=== PATIENT | male | born 1995 | race Caucasian/White ===

== ENCOUNTER 2024-09-12 15:46 | Outpatient (CLI) | payer BC, SELFPAY ==
--- NOTE | ~2024-09-12 | CT_ITS ---
EXAMINATION: CT lumbar spine w con DATE: 09/12/2024 16:26 INDICATION: Pilonidal cyst without abscess. TECHNIQUE: Computed tomography (CT) of the lumbar spine was performed with 100 mL Omnipaque 350 intra venous contrast. Automated exposure control and iterative reconstruction technique were employed. The dose-length product was 620.88 mGy-cm. COMPARISON: Ultrasound 08/05/2024 FINDINGS: There is 4 degrees levocurvature of lumbar spine. Vertebral body heights are normal. Interv ertebral disc heights are normal. Posterior to S4, there is a 9 mm thick-walled subcutaneous cyst. Th e following disc levels are specifically discussed: L1-L2: The disc does not extend beyond the endplate margin. There is mild bilateral facet joint osteo arthritis. There is no neural foraminal stenosis. There is no central canal stenosis. L2-L3: The disc does not extend beyond the endplate margin. There is mild bilateral facet joint osteo arthritis. There is no neural foraminal stenosis. There is no central canal stenosis. L3-L4: The disc is bulging. There is mild bilateral facet joint osteoarthritis. There is mild bilater al neural foraminal stenosis. There is mild central canal stenosis. L4-L5: The disc is bulging. There is mild bilateral facet joint osteoarthritis. There is mild bilater al neural foraminal stenosis. There is mild central canal stenosis. L5-S1: The disc is bulging. There is mild bilateral facet joint osteoarthritis. There is mild bilater al neural foraminal stenosis. There is mild central canal stenosis. IMPRESSION: 1. Mild lumbar spondylosis. 2. 9 mm thick-walled subcutaneous cyst posterior to S4, likely a pilonidal cyst. Reviewed, dictated and finalized at location A. SSION LIAISON IMPRESSION: 1. Mild lumbar spondylosis. 2. 9 mm thick-walled subcutaneous cyst posterior to S4, likely a pilonidal cyst .
--- OUTSIDE RECORDS SUMMARY | 2024-09-16 02:04 | XMS_ITS | Encounter Summary ---
Author Organization [facility] Address [address] [place] [address] Care Team Providers Care Director Of Marketing Operations Name Role Phone Hema Lauren MD Primary Care Provider + [phone] Reason for Visit * Auth/Cert (Routine) Specialty Diagnoses / Procedures Referred By Venita t Referred To Contact Diagnoses Acute lateral meniscus tear of right knee, initial encounter Acute lateral meniscus tear of right knee, initial encounter [S83.281A] Procedures MO ARTHRS KNE SURG W/MENISCECTOMY MED/LAT W/SHVG MO ARTHROSCOPY KNEE W/MENISCUS RPR MEDIAL/LATERAL RIGHT KNEE ARTHROSCOPIC PARTIAL LATERAL MENISCECTOMY VERSUS REPAIR RIGHT Referral ID Status Reason Start Date Expiration Date Visits Re quested Visits Authorized [id number] 1 1 Encounter Details Date Type Department Care Team (Latest Contact Info) Description 11/02/2023 1:23 PM TUBER MACHINE CUTTER - 11/02/2023 6:08 PM TUBER MACHINE CUTTER Hospital Encounter [facility] [address] [place] [id number] Ishaan Lee IV, MD [address] [place] [phone] Bucket-handle tear of lateral meniscus of right knee as current injury, subsequent encounter (Primary Dx) Discharge Disposition: Discharge to home or self care Social History Tobacco Use Types Packs/Day Years Used Date Smoking Tobacco: Never Smokeless Tobacco: Never AUDIT-C Answer Date Recorded Q1: How often do you have a drink containing alc ohol? 2-4 times a month 10/18/2023 Q2: How many drinks containi ng alcohol do you have on a typical day when you are drinking? 5 or 6 10/18/2023 Q3: How often do you have si x or more drinks on one occasion? Monthly 10/18/2023 Personal Safety Answer Date Recorded Have you ever been in or are you currently in a harmful physical or emotional relationship or is someone making you feel afraid or unsafe? Denies 11/02/2023 Sex and Gender Information Value Date Recorded Sex Assigned at Not on file Legal Sex Male 11:56 PM CDT Gender Identity Not on file Sexual Orientation Not on file documented as of this encounter Last Filed Vital Signs Vital Sign Reading Time Taken Comments Blood Pressure 111/66 11/02/2023 5:45 PM TUBER MACHINE CUTTER Pulse 63 11/02/2023 5:55 PM TUBER MACHINE CUTTER Temperature 36.5 ??C (97.7 ??F) 11/02/2023 5:55 PM CS T Respiratory Rate 15 11/02/2023 5:55 PM TUBER MACHINE CUTTER Oxygen Saturation 98% 11/02/2023 5:55 PM TUBER MACHINE CUTTER Inhaled Oxygen Concentration - - Weight 90 kg (198 lb 6.4 oz) 11/02/2023 1:40 PM TUBER MACHINE CUTTER Height 182.9 cm (6') 11/02/2023 1:40 PM TUBER MACHINE CUTTER Body Mass Index 26.91 11/02/2023 1:40 PM TUBER MACHINE CUTTER documented in this encounter Medications at Time of Discharge HYDROcodone-aceta minophen (NORCO) 5-325 mg per tabletIndications :Pain Take 1-2 tablets by mouth every 6 (six) hours as needed for pain 12 tablet 11/02/2023 ibuprofen (ADVIL,MOTRIN) 200 mg tab/cap Take 2 tablet/capsule (400 mg total) by mouth every 6 (six) hours as needed for pain meloxicam (MOBIC) 15 mg tablet Take 1 tablet (15 mg total) by mouth daily for 10 days 10 tablet 11/02/2023 documented as of this encounter Discharge Disposition Disposition Code Departure Means Destination Comment s Discharge to home or self care documented in this encounter H&P Notes * Payton Topete NP - 11/02/2023 1:24 PM CST Outpatient Pre-Procedure History and Physical Subjective Patient is a 28 y.o. male with chief complaint of right knee pain. Indication For Procedure: Pre-op Diagnosis * Acute lateral meniscus tear of right knee, initial encounter [S80.046T] Planned Procedure RIGHT KNEE ARTHROSCOPIC PARTIAL LATERAL MENISCECTOMY VERSUS REPAIR (R), RIGHT (R) HPI: Patient is a 28 year old male with a right knee lateral meniscus tear who presents today for right knee arthroscopic partial lateral meniscectomy versus repair. History reviewed. No pertinent past medical history. Past Surgical History: Procedure Laterality Date UMBILICAL HERNIA REPAIR 2017 Medications Prior to Admission Medication Sig Dispense Refill Last Dose ibuprofen (ADVIL,MOTRIN) 200 mg tab/cap Take 2 tablet/capsule (400 mg total) by mouth every 6 (six)hours as needed for pain Past Week HYDROcodone-acetaminophen (NORCO) 5-325 mg per tablet Take 1-2 tablets by mouth every 6 (six) hoursas needed for pain 12 tablet 0 meloxicam (MOBIC) 15 mg tablet Take 1 tablet (15 mg total) by mouth daily for 10 days 10 tablet 0 Allergies Allergen Reactions Pollen Extracts Sneezing Social History Tobacco Use Smoking status: Never Smokeless tobacco: Never Substance and Sexual Activity Drug use: Not Currently Sexual activity: Defer Alcohol Use: Alcohol Misuse (10/18/2023) AUDIT-C Frequency of Alcohol Consumption: 2-4 times a month Average Number of Drinks: 5 or 6 Frequency of Binge Drinking: Monthly Social History Substance and Sexual Activity Drug Use Not Currently Vitals: 10/18/23 1600 Weight: 88.5 kg (195 lb) Height: 182.9 cm (6') Review of Systems: Review of systems per HPI and otherwise all other systems are negative Physical exam: Lungs: clear to auscultation bilaterally Heart: regular rate and rhythm, S1, S2 normal, no murmur, click, rub or gallop Neurologic: Alert and oriented x4, grossly intact Payton Topete NP Cosigned by Ishaan Lee IV, MD at 11/02/2023 2:45 PM TUBER MACHINE CUTTER R MACHINE CUTTER R MACHINE CUTTER documented in this encounter Miscellaneous Notes * Perioperative Nursing Note - Morenita De La Garza RN - 11/02/2023 6:08 PM TUBER MACHINE CUTTER Patient discharged to home. Instructions given to patient and parents, all verbalize understanding,all questions answered. Patient is NWB for 2 days, and then WBAT with tscope brace locked in extension starting on POD 3. Patient has crutches. Patient given a disposable ice pack to take home. Patient escorted to car in wheelchair for discharge. R MACHINE CUTTER * Perioperative Nursing Note - Morenita De La Garza RN - 11/02/2023 4:34 PM TUBER MACHINE CUTTER Pt in bed in lowest position locked with both side rails up, nonslip socks applied, curtain open and patient near nurses station. Pt will not be left behind curtain alone. Pt assisted in all care in recovery. Leland score based on pre-op condition. R MACHINE CUTTER * Brief Op Note - Emeterio Ortega DO - 11/02/2023 4:24 PM CST Operative Progress Note Surgical Team: Surgeon(s) and Role: * Ishaan Lee IV, MD - Primary * Emeterio Ortega DO - Fellow Anesthesiologist: Rosa Rice MD INSPECTOR TIMERS: Adry Cade CRNA Explosive Ordnance Disposal Technician: Debbie Francisco RN Scrub: Marie Lipscomb RN DATE OF SURGERY : 11/02/2023 Preoperative Diagnosis: Pre-op Diagnosis * Acute lateral meniscus tear of right knee, initial encounter [S83.281A] Postoperative Diagnosis: Post-op Diagnosis * Acute lateral meniscus tear of right knee, initial encounter [S83.281A] Procedure(s): Procedure(s) (LRB): RIGHT KNEE ARTHROSCOPIC LATERAL MENISCUS REPAIR (Right) RIGHT (Right) Operative Findings: PF compartment cartilage intact ACL intact PCL intact Medial compartment intact Lateral meniscus vertical tear Lateral compartment cartilage intact Estimated Blood Loss: 50 mL Intraoperative Fluids: 1000 mls Specimens: No specimen collected in procedure Implants: Implant Name Type Inv. Item Serial No. Child Support Investigator Lot No. LRB No. Used Action [employer] Meniscal Repair Curved 2 0 Fiberwire Fiberstitch AR-4570 - [id number] [employer] Meniscal Repair Curved 2 0 Fiberwire Fiberstitch AR-4570 [employer] [id number] Right 1 Implanted [employer] Meniscal Repair Curved 2 0 Fiberwire Fiberstitch AR-4570 - [id number] [employer] Meniscal Repair Curved 2 0 Fiberwire Fiberstitch AR-4570 [employer] [id number] Right 1 Implanted [employer] Independence Meniscal Repair Curved 2 0 Fiberwire Fiberstitch AR-4570 - [id number] [employer] Independence Meniscal Repair Curved 2 0 Fiberwire Fiberstitch AR-4570 [employer] [id number] Right 1 Implanted [employer] Independence Meniscal Repair Curved 2 0 Fiberwire Fiberstitch AR-4570 - [id number] [employer] Independence Meniscal Repair Curved 2 0 Fiberwire Fiberstitch AR-4570 [employer] [id number] Right 1 Implanted Blood/Blood Products Transfused: 0 mls Complications: None Condition on Discharge from the operating room was stable Emeterio Ortega DO Date: 11/02/2023 Time: 4:28 PM TEACHING ATTESTATION : I was present and directly participated in the entire procedure (including opening and closing). Cosigned by Ishaan Lee IV, MD at 11/02/2023 5:25 PM TUBER MACHINE CUTTER R MACHINE CUTTER R MACHINE CUTTER * Perioperative Nursing Note - Morenita De La Garza RN - 11/02/2023 1:48 PM TUBER MACHINE CUTTER Patient's parents Reza and Jo are here with patient and will care for him for 24 hours after surgery. Patient has crutches. R MACHINE CUTTER * Op Note - Ishaan Lee IV, MD - 11/02/2023 12:00 AM CST PREOPERATIVE DIAGNOSIS Right knee displaced bucket-handle lateral meniscus tear. POSTOP DIAGNOSIS Right knee displaced bucket-handle lateral meniscus tear. PROCEDURE Right knee arthroscopic lateral meniscus repair. SURGEON Dr. Ishaan Lee. GEOCHEMICAL MANAGER Dr. Emeterio Ortega. ANESTHESIA General. IV FLUIDS 1000 mL. EBL 50 mL. IV ANTIBIOTICS 2 g Ancef. IMPLANTS Four FiberStitch meniscal repair implants. DRAINS None. COMPLICATIONS None. DISPOSITION To the PACU in stable condition. INTRAOPERATIVE FINDINGS 0-135 degrees of flexion symmetric with the contralateral side. 1A Felisa. No varus or valgus instability at 0 and 30 degrees of flexion. Arthroscopic examination revealed no pathology in the suprapatellar pouch. Intact cartilage on patella and trochlea. No pathology or loose bodies in medial or lateral gutter. The medial compartment showed intact articular and meniscal cartilage. ACL was intactin the notch. The lateral compartment showed a bucket-handle tear of the posterior horn of the lateral meniscus at the red-red zone unstable into the joint. Intact cartilage on the femur and tibia. PROCEDURE INDICATIONS As outlined in my clinic note, patient is a 28-year-old gentleman with long- standing mechanical symptoms due to a displaced bucket-handle lateral meniscus tear. As outlined my clinic note, he understands indication for surgery, the risks and benefits, and wishes to proceed. I indicated him intraoperatively for a lateral meniscus repair because if I resected his entire posterior horn of lateral meniscus, he would have a significant risk for pain, swelling and rapidly progressive degenerative changes. DESCRIPTION OF PROCEDURE The surgical site was signed in the preoperative holding area. The patient was then brought to the operating room and placed supine on the operating table. Preoperative antibiotics were given if indicated and adequate anesthesia was achieved. A nonsterile tourniquet was placed on the patient's thigh. Examination under anesthesia was performed and the findings were as previously indicated. The patient was then prepped and draped in the standard sterile surgical fashion. A surgical timeout was held to confirm the appropriate surgical site had been identified. Standard knee arthroscopy portals were made in the standard fashion. Inspection of the joint commenced and the findings were as previously indicated. After confirming it was appropriately to treat with repair, I used 3 FiberStitch meniscal repair implants. I placed 2 vertical mattress sutures at the more medial aspect of the posterior horn workingthrough the anterolateral portal. I then placed a slightly oblique mattress fashion at the more lateral aspect of the posterior horn working through the anteromedial portal. Finally I placed an undersurface horizontal stitch through the anterolateral portal. Once those 4 had been placed, the tear was now stable along its entire extent to the probe and to flexion and extension of the knee. I then used a microfracture awl to make appropriately spaced microfractures in the nonweightbearing lateralnotch for bone marrow stimulation. There was nice egress of fat and blood into the joint appropriately. The case was then completed in the standard fashion. The fluid was compressed out of the joint and the arthroscopic equipment was removed. The portals were closed with sutures in a watertight fashion. Wounds were cleaned and dried and a sterile surgical dressing was applied. The patient was placed in a hinged brace locked in extension at the end of the case. The patient tolerated the procedure well and was transferred to the PACU in stable condition. The sponge, needle and instrument count were correct at the end of the case. I was present for and performed the entire case with the help of the assistants in the room. Job ID/Internal Job ID: [id number] R MACHINE CUTTER * Pre-Procedure Instructions - Jesi Bruno RN - 11/01/2023 3:00 PM TUBER MACHINE CUTTER We are pleased that you and your doctor have chosen [facility] for your surgery. We hope the following information will help make your visit a pleasant one. The name of the building is [facility] in [place]. Directions to facility (address is [address] [place] [address] road, [address] [facility] exit. [place] [address] When you enter the building, look directly to your left, you will see 2 glass double doors. These double doors say [address]. Go through those double doors and check in with the green pipefitter. Patient has own crutches and knows how to use them. Bring pillows, leave in car. Patient has ice/gel pack for home. Wear loose-fitting clothes. Something with an elastic waist on the bottom, such as gym shorts or sweat pants depending on the weather. T-shirt on top or a shirt with a loose sleeve unless you are having shoulder surgery then wear a loose- fitting button-down shirt or a shirt that zips up the front. Pt instructed by CPAP not to eat anything after Midnight. CPAP instructed pt.-->You may have clear liquids on the day of surgery until two hours before your arrival to the Orthopedic center, clear liquids until 1130. Acceptable clear liquids include water, clear sports drinks, unsweetened tea, black coffee or clear soda. Do NOT drink Milk, creamer or Alcohol. You MUST STOP drinking two hours before you arrive to the Orthopedic center. No gum, no mints , no candy, no cough drops, no CBD oil, no marijuana, no Chewing tobacco, or vaping. No ice or water. You may brush your teeth, just make sure you spit it all out. Instructed to patient to refer to [facility] surgery guide page 6 for any questions regarding eating and drinking day of surgery. For medications that the Nurse Practitioner instructed you to take on the morning of surgery, take the medications with a few sips of water. Pt's. TRIP LEE [phone] will be with patient and care for patient for the first 24 hours post-op. Pt. Instructed to arrive at 1330 for 1530 procedure. Procedure is scheduled for 3/4 hour(s). Pt. Denies any of the following symptoms: Nausea/vomiting/diarrhea, loss of taste or smell, rash orsores, body/muscle/joint aches, cough, sore throat, fever/chills, severe headache or Shortness of breath. Pt. is asymptomatic and denies any exposure to Covid or any Covid symptoms. Explained to patient, if you develop any symptoms of fever, chills, headache, cough, sore throat, body aches or is exposed to anyone that has been diagnosed, tested or quarantined for the COVID-19 you will not be allowed to enter the building or to have your surgery per anesthesia's guidelines. Explained to patient to please call the morning of surgery, any time after 5:30 a.m. if you or your caregiver develops any of these symptoms or is exposed to anyone that has been diagnosed, tested or quarantined for COVID-19. Pt. Reports understanding. Once your physician has completed your surgery, he will call your caregiver to notify them your surgery is complete, and you are heading to the Recovery room. Your caregiver will not be called back to be with you until you are awake and ready for discharge. The nurse who is caring for you will callyour caregiver to come back to be with you for discharge instructions. Explained to patient that the self-serve cafe is across the cerda from the surgery center. Explainedto patient if their caregiver would like anything to eat or drink, they may bring their own or purchase it from the refreshment area. R MACHINE CUTTER * Pre-Procedure Instructions - Deepika Benitez NP - 10/26/2023 1:24 PM TUBER MACHINE CUTTER [facility] for Preoperative Assessment [facility] Planning CPAP Clinic Location: [facility] The night before your surgery: * Do not eat anything after midnight the night before your procedure. and * Do not smoke or use tobacco products after midnight the night before surgery. It is best to stop smoking now to improve your health. The morning of your surgery: * You may have clear liquids on your surgery day. You must stop drinking two hours before you arrive to the surgery facility. Acceptable clear liquids include water, clear sports drinks, black coffee, or clear soda. DO NOT drink any milk, creamer, or alcohol. * Your surgeon's office may have provided additional instructions or restrictions. Please follow those instructions. * You may brush your teeth and rinse your mouth out. * Do not glue your dentures. * Do not wear jewelry, body piercings, makeup, hairpins, false eyelashes or contact lenses to the hospital. * Leave any valuables at home or with your family. * If you have an implantable device with a remote, bring the remote with you on the day of surgery. * If you use home oxygen, bring your portable oxygen tank with you on the day of surgery * If you are going to be admitted after surgery at [facility], COVID testing may be performed on the day of surgery, even if you are up to date on your COVID-19 vaccine. * If having surgery at [facility], you may want to bring a credit card if you want to use our Mobile Pharmacy for your discharge medications. Mobile pharmacy is not available at [facility], the Orthopedic Center, or the [facility]. Outpatient Surgery: * You must have a responsible adult drive you home and stay with you for 24 hours after your surgery * You cannot be alone at home or in a hotel * Please call your surgeon's office if you do not have someone to drive you home and/or stay with you after surgery * Please bring any items you may need to spend the night in the hospital. Sometimes patients need to be cared for in the hospital overnight. Instructions For Your Medications: Pre-Surgery Instructions: Medication Instructions ibuprofen (ADVIL,MOTRIN) 200 mg tab/cap Stop taking 5 days prior to surgery General Instructions For Medications: * Stop all of these medications 5 days prior to your surgery: excedrin, motrin, advil, ibuprofen, aleve, naproxen, meloxicam, celebrex, celecoxib. For medications that you are instructed to take on the morning of surgery, take the medications with a few sips of water. Stop all of these medications 7-14 days prior to your surgery: Vitamin E, Herbal medicines, Diet Pills If you have pain, you may take tylenol (acetaminophen). Do not take more than 6 tablets or 3000 mg (3 g) within a 24 period. Call your surgeon and the CPAP clinic if any of the following happens before surgery: Any changes in your health You have a fever You have any signs of an infection (chest, urinary tract or tooth) You have been to the Emergency Room or were in the hospital You have started taking any new medications You have questions about a bowel prep or special diet before surgery You have symptoms of COVID-19 such as a new or worsening cough, shortness of breath, fever, body aches, loss of taste or smell, diarrhea or vomiting, or sore throat. You have a household contact with COVID-19. You test positive for COVID-19. R MACHINE CUTTER * Perioperative Nursing Note - Aubrey Henley RN - 10/18/2023 4:08 PM TUBER MACHINE CUTTER Center for Preoperative Assessment and Planning Perioperative Nursing Note Telephone Preoperative Evaluation ([facility]) - TELEPHONE ONLY, NO PHYSICAL EXAM Date: 10/18/23 This assessment was completed with the patient. Vitals: 10/18/23 1600 Weight: 88.5 kg (195 lb) Height: 182.9 cm (6') CHEST CIRCUMFERENCE: Social History Tobacco Use Smoking Status Never Smokeless Tobacco Never Substance and Sexual Activity Drug Use Never Alcohol Use Q1: How often do you have a drink containing alcohol?: 2-4 times a month Q2: How many drinks containing alcohol do you have on a typical day when you are drinking?: 5 or 6 Q3: How often do you have six or more drinks on one occasion?: Monthly Outpatient Medications Marked as Taking for the 11/02/23 encounter (Hospital Encounter) Medication Sig Dispense Refill ibuprofen (ADVIL,MOTRIN) 200 mg tab/cap Take 2 tablet/capsule (400 mg total) by mouth every 6 (six)hours as needed for pain Implants No active implants to display in this view. SKIN Piercings Remaining: No Wound (LDAs) Type of Wound (LDA): (none) SCREENINGS Carmen index score: 100 NUTRITION PATIENT CARE PLANNING Advance Directives (For Healthcare) Have you reviewed your Advance Directive and is it valid for this stay?: Not applicable Advance Directive: Patient does not have advance directive, Patient would like information, Information provided Information Provided on Healthcare Directives: Yes Communication/Automation Sales Manager Needs Communication Needs: None Does caregiver's language differ from patient's?: No Assistive Devices/DME: None Discharge Planning Type of Residence: Private residence Living Arrangements: Spouse/significant other Support Systems: Spouse/significant other, Parent Assistance Needed: Father to provide discharge transportation Patient expects to be discharged to:: Private residence HORTICULTURAL FARM MANAGER NO ADDITIONAL COMMENTS/ FOLLOW UP R MACHINE CUTTER * Pre-Procedure Instructions - Aubrey Henley RN - 10/18/2023 4:08 PM TUBER MACHINE CUTTER [facility] FOR PREOPERATIVE ASSESSMENT AND PLANNING ([facility]) PRE-SURGICAL NURSING INSTRUCTIONS Telephone Assessment General Information Discussed with Patient: Surgery location provided to patient. Arrival time and surgical time will be provided to the patient by their surgeon. You should wear clothing that is clean, loose, comfortable and easy to get in and out of on the dayof surgery. You should remove nail coverings, artificial nails and nail vietnamese prior to the day of surgery. You should leave your valuables and any jewelry at home. No metal or piercings are allowed in the operating room. You should bring your insurance card, a photo ID (example: Wrecking Crane Engine Operator's License) and a method of payment for any insurance copay, deductible or copay for discharge medications. You should bring a complete, up-to-date, list of all your medications on the day of surgery, including any over the counter medications or supplements you may take. Please note on your medication list, the last date & time you took each medication. The healthcare team, on the day of surgery, will ask for this information. You should bring your Advanced Directive and/or Living Will with you on the day of surgery if you have not verified a copy is already in your Epic Chart. If you are having surgery at [facility], please arrive on the day of surgery with the name and phone number of your local 24 hour pharmacy. Due to evening discharges, your routine pharmacy may be closed. In order to obtain your prescriptions that evening, your surgeon may need to send prescriptions to this pharmacy or have you take prescriptions to this pharmacy when you are discharged. Without this information, you may not be able to obtain your prescriptions that evening. A Guide for Patients Having Surgery: Your Pathway to Excellent Care OUR GOAL IS TO PROVIDE YOU WITH EXCELLENT CARE Use this guide to learn about what you can do before, during and after surgery to help your recovery. You are the most important person on your health care team. By becoming informed and involved, you can contribute to the success of your surgery. If your surgeon's directions are different than those in this guide, talk with your nurse or surgeon to confirm the information. It is important that you understand how to take care of yourself at home after surgery. Be sure to bring this guide with you on the day of surgery and take it home with you after surgery. Write down questions for your nurse or surgeon on the last page of this booklet. Important pages to be reviewed BEFORE surgery: Page 1: QR codes for Surgery Center maps Page 3: Types of Anesthesia Page 5: Tips for the day & night before surgery Page 6: When to stop eating BEFORE surgery and examples of clear liquids Page 7-10: Preventing Infection: Chlorhexidine Gluconate (CHG) Bathing Instructions You may access A Guide for Patients Having Surgery: Your Pathway to Excellent Care by the followinglink: [email or web address] How To Prepare Your Skin For Surgery Below is the Pre-Surgical Bathing Protocol you should follow for your surgery. If your surgeon provides you different bathing instructions, please follow your surgeon's orders. 2 Day CHG Bathing Protocol (no nasal ointment) PREVENTING INFECTION (DECOLONIZATION): Decolonization is the use of a topical antiseptic soap and sometimes a nasal ointment to remove bacteria (germs) from the skin's surface. Antiseptic soap: Chlorhexidine gluconate or CHG (brand name: Hibiclens??) Before surgery, your entire body must be thoroughly cleaned. CHG helps to reduce the bacteria on your skin. You may be given one or more bottles of CHG or you may be asked to obtain from your preferred pharmacy. Be sure to ask your pharmacist if you need help finding this product. Nasal ointment: Mupirocin (brand name: Bactroban) Your surgeon may also prescribe a topical ointment that is rubbed inside each of the nostrils to reduce the bacteria in your nose. Mupirocin ointment requires a prescription. If needed, it will be prescribed by your surgeon and obtained from your preferred pharmacy. SHOWERING WITH ANTISEPTIC SOAP (CHG) What You Need For Each Shower 60 mL (?? cup) of CHG 2 clean washcloths CHG Bathing Instructions First, shampoo and rinse your hair with your own shampoo (no conditioners). Do this so the antiseptic soap isn't washed off by your shampoo. Wash face with warm water. Turn off shower and stand away from the water. Use 2 clean washcloths to apply the antiseptic soap to all areas as described below: Pour 30 mL (1/8 cup) of CHG on washcloth #1: Using washcloth- start at jawline and firmly massage the soap into the skin in a circular motion to clean neck, shoulders, chest, back, both armpits, arms, hands and abdomen. Finish with legs and feet. Pour 30 mL (1/8 cup) of CHG on washcloth #2: Using washcloth- firmly massage the soap into the skinin a circular motion to clean groin area, perineum and buttocks. (Do not use CHG on genital area.) Alvarez Points: The CHG antiseptic soap will not bubble or lather very much. If you get soap in your eyes, ears or mouth, rinse well with cool water. When finished, leave the soap on your skin for 2 minutes before rinsing. Dry off with a clean fresh towel. Wear clean clothes or pajamas to sleep in. After showering DO NOT put on deodorant, hair products or conditioners, lotions or creams, powders,Vaseline or any non-essential products. If you cannot reach the surgical site, such as the back, please have someone help you. Shaving: You may shave your face, legs and underarms during your evening shower before you apply the CHG antiseptic soap. Be careful not to cut or modesta your skin. Avoid shaving on the day of surgery. Deodorant: Patients following the 5-Day CHG protocol may apply deodorant on the days leading up to surgery, being sure, however, to avoid use on the evening before and day of surgery. All other products should be avoided for the full 5 days. 2-Day CHG Bathing Protocol The Evening Before Surgery: Take a shower with Antiseptic soap (CHG). Follow the steps for ???Showering with Antiseptic Soap (CHG)?? above. Change all linens on your bed so you are sleeping in clean fresh sheets and pillowcases. Remove nail coverings, artificial nails and nail vietnamese. The Morning of Surgery: Take a shower with Antiseptic soap (CHG). Follow the steps for ???Showering with Antiseptic Soap (CHG)?? above. Put clean clothes on after you shower. Travel/Exposure Screening: Travel Screening Have you traveled outside the [place] in the last 6 months?: No Exposure Screening Have you been exposed to anyone who is sick in the last 30 days?: No Have you been exposed to or tested positive for COVID-19 within the last 10 days?: No Infectious Disease Screening Are you having any of the following:: None As of 07/25/2022 any COVID TESTING required for surgery will be set up by your surgeon's office. Please reach out to your surgeon's office if you develop any COVID symptoms, test positive for COVID or are exposed to a COVID positive person. If you have questions, please call the [facility] Staff at [phone], Sunday-Sunday 8am-4:30pm. All patients should read the below section: COVID 19 Updates & Visitor Policy: Please access [email or web address] for the most updated information. Information on [facility]: Please view [email or web address] (Patient & Visitor Information) for additional details regarding Advanced Directive forms, AWARE, directions, parking information, lodging, Internet access, dining and more. Information on [facility] or [facility] ([facility]): Please view [email or web address] (Patient and Visitor Information) for parking/directions and more. For MyChart information, to activate account or password recovery, please go to [email or web address] or call [phone] (toll-free: [phone]), Sun- Sunday 8am-5pm. Information for Suicide Prevention: National Suicide Prevention Lifeline (5-767- 925-BDOD (4154)) or call or text Opternative. Chat resources: [employer]. Surgery Times: For patients having [facility] @ [facility], if your surgeon's office has not notified you of your surgery time by NOON THE BUSINESS DAY BEFORE your surgery, please call the surgery center [phone]. [facility] ([facility]) does not provide arrival times for the day of surgery or provide the duration of surgery. This information is provided by your surgeon'soffice or by the center where you are having surgery. We appreciate your understanding. R MACHINE CUTTER documented in this encounter Plan of Treatment Not on file documented as of this encounter Procedures Procedure Name Priority Date/Time Associated Diagnosis Comments ARTHROSCOPY KNEE MENISCAL REPAIR 11/02/2023 3:25 PM TUBER MACHINE CUTTER Acute lateral meniscus tear of right knee, initial encounter ARTHROSCOPY KNEE MENISCAL DEBRIDEMENT 11/02/2023 3:25 PM TUBER MACHINE CUTTER Acute lateral meniscus tear of right knee, initial encounter documented in this encounter Visit Diagnoses Diagnosis Acute lateral meniscus tear of right knee- Primary Bucket-handle tear of lateral meniscus of right knee as current injury, subsequent encounter documented in this encounter Admitting Diagnoses Diagnosis Acute lateral meniscus tear of right knee documented in this encounter Administered Medications Inactive Administered Medications - up to 3 most recent administrations Medication Order MAR Action Action Date Dose Rate Site HYDROcodone-acetaminophen (NORCO) 5-325 mg per tablet 1 tablet 1 tablet, oral, Every 30 min PRN, 2nd line for pain, Starting on Sun11/02/23 at 1639, For 2 doses, Phase I, Indications: PainIndications:Pain Given 11/02/2023 5:24 PM TUBER MACHINE CUTTER 2 tablets Lactated Ringer's (LR) infusion 30 mL/hr, intravenous, Continuous, Starting on Sun11/02/23 at 1400, Pre-Op, Use a 500 ml bag for End Stage Renal Disease Patients New Bag 11/02/2023 4:26 PM TUBER MACHINE CUTTER Rate/Dose Verify 11/02/2023 3:22 PM TUBER MACHINE CUTTER 30 mL/h r New Bag 11/02/2023 1:51 PM TUBER MACHINE CUTTER 30 mL/hr 30 mL/hr lidocaine PF (XYLOCAINE) 10 mg/mL (1 %) preservative free injection 2-10 mg 2-10 mg (0.2-1 mL), subcutaneous, Once as needed, pain with IV placement, Starting on Sun11/02/23 at 1325, For 1 dose, Pre-Op, Administer volume needed to infiltrate IV site. Given 11/02/2023 1:51 PM TUBER MACHINE CUTTER 2 mg Right Forearm documented in this encounter Discontinued Medications Medication Sig Discontinue Reason Start Date End Da te acetaminophen (TYLENOL) 325 mg tablet Take by mouth Therapy completed 10/18/2023 documented as of this encounter Active and Recently Administered Medications Times are shown in TUBER MACHINE CUTTER. Scheduled Medication Order 10/31/2023 11/01/2023 11/02/2023 ceFAZolin (ANCEF) 2,000 mg/50 mL in dextrose (premix) 2,000 mg (COMPLETED) 2,000 mg, intravenous, at 100 mL/hr, Administer over 30 Minutes, Once, On Sun11/02/23 at 1400, For 1 dose, Pre-Op, Administer within 60 minutes of incision. Duplex bag - activate before hanging., Indications: Prophylaxis, Surgical 1533 (Given - Provid er: Adry Cade CRNA) scopolamine patch 72 hour 1 patch 1 patch, transdermal, Administer over 72 Hours, Once, On Sun11/02/23 at 1400, For 1 dose, Pre-Op, Apply to beach-chair position shoulder surgery patients, and to patients with a history of PONV and/or Motion Sickness. Do NOT administer to patients with a history of BPH or Glaucoma. Consult Anesthesiologist with any questions. In case of urinary retention, remove patch immediately and clean patch site with alcohol., Indications: Motion Sickness, Prevention of Motion Sickness, Prevention of Post-Operative Nausea and Vomiting 1400 (Due) Continuous Medication Order 10/31/2023 11/01/2023 11/02/2023 Lactated Ringer's (LR) infusion 30 mL/hr, intravenous, Continuous, Starting on Sun11/02/23 at 1400, Pre-Op, Use a 500 ml bag for End Stage Renal Disease Patients 1328 (Due)1351 (New Bag - Provider: Morenita De La Garza RN)1400 (Due)1522 (Rate/Dose Verify - Provider: Adry Cade CRNA)1625 (Paused - Provider: Adry Cade CRNA - Comment: Switch to gravity)1626 (New Bag - Provider: Adry Cade CRNA)1634 (Stopped - Provider: Morenita De La Garza RN) Lactated Ringer's (LR) infusion 125 mL/hr, intravenous, Continuous, Starting on Sun11/02/23 at 1715, Phase I 1634 (Continued from OR - Provider: Morenita De La Garza RN)1755 (Stopped - Provider: Morenita De La Garza RN) PRN Medication Order 10/31/2023 11/01/2023 11/02/2023 BUPivacaine-EPINEPHrine (MARCAINE with EPI) 0.5 %-1:200,000 preservative free injection (CANCELED) As needed, Starting on Sun11/02/23 at 1552, Intra-Op 1552 (Given - Provid er: Ishaan Lee IV, MD) diphenhydrAMINE (BENADRYL) 50 mg/mL injection 12.5 mg 12.5 mg, intravenous, Administer over 1 Minutes, Every 5 min PRN, itching, other, For Nausea, administer 25 mg IV., Starting on Sun11/02/23 at 1639, For 4 doses, Phase I, Max cumulative dose 50 mg., Indications: Itching fentaNYL (SUBLIMAZE) preservative free syringe 25 mcg 25 mcg, intravenous, Every 10 min PRN, 1st line for pain, Starting on Sun11/02/23 at 1639, For 4 doses, Phase I, Notify anesthesiologist if total PACU dose reaches 100 mcg AND pain score 5/10 or more. When patient able to tolerate PO, proceed to 2nd line analgesic agent for pain management., Indications: Pain hydrALAZINE (APRESOLINE) injection 5 mg 5 mg, intravenous, Administer over 2 Minutes, Every 5 min PRN, high blood pressure, Starting on Sun11/02/23 at 1639, Phase I, Max cumulative dose 20 mg. Dose if systolic BP greater than 180 AND heart rate less than 70., Indications: hypertension HYDROcodone-acetaminophen (NORCO) 5-325 mg per tablet 1 tablet 1 tablet, oral, Every 30 min PRN, 2nd line for pain, Starting on Sun11/02/23 at 1639, For 2 doses, Phase I, Indications: Pain 1724 (Given - Provid er: Morenita De La Garza RN - Comment: per anesthesia) labetaloL (NORMODYNE,TRANDATE) injection 5 mg 5 mg, intravenous, Every 5 min PRN, high blood pressure, Starting on Sun11/02/23 at 1639, For 4 doses, Phase I, Max cumulative dose 20 mg. Dose if systolic blood pressure greater than 180 AND HR greater than 70. Lactated Ringer's (LR) irrigation (CANCELED) As needed, Starting on Sun11/02/23 at 1552, Intra-Op 1552 (Given - Provid er: Ishaan Lee IV, MD) lidocaine PF (XYLOCAINE) 10 mg/mL (1 %) preservative free injection 2-10 mg (COMPLETED) 2-10 mg (0.2-1 mL), subcutaneous, Once as needed, pain with IV placement, Starting on Sun11/02/23 at 1325, For 1 dose, Pre-Op, Administer volume needed to infiltrate IV site. 1351 (Given - Provid er: Morenita De La Garza RN) meperidine (DEMEROL) preservative free injection 12.5 mg 12.5 mg, intravenous, Administer over 5 Minutes, Every 10 min PRN, shivering, Starting on Sun11/02/23 at 1639, For 2 doses, Phase I, Max cumulative dose 25 mg., Indications: Shivering naloxone (NARCAN) 0.4 mg/mL injection 0.04-0.4 mg 0.04-0.4 mg, intravenous, Once as needed, other, excessive sedation/respiratory depression, Starting on Sun11/02/23 at 1639, For 1 dose, Phase I, Dilute 0.4 mg with 9 mL NS (final concentration 0.04 mg/mL). For respiratory depression (respiratory rate less than 6), administer 0.4 mg IVP over 30 seconds. For excessive sedation administer 0.04 mg (1 mL) every 1 minute until desired level of alertness. Consult with Anesthesiologist before administration. Administer 40 mics at a time. For IV, administer over 30 seconds., Indications: Opioid Toxicity ondansetron (ZOFRAN) injection 4 mg 4 mg, intravenous, Administer over 2 Minutes, Once as needed, nausea, vomiting, Starting on Sun11/02/23 at 1639, For 1 dose, Phase I, Proceed to prochlorperazine if ondansetron has been given within the last 6 hours. prochlorperazine (COMPAZINE) injection 5 mg 5 mg, intravenous, Administer over 2 Minutes, Once as needed, nausea, vomiting, May give second 5 mg dose if nausea not improved after 15 minutes., Starting on Sun11/02/23 at 1639, For 2 doses, Phase I, If nausea/vomiting not relieved by ondansetron within 30 minutes or if ondansetron has been given within the last 6 hours. sodium chloride 0.9% flush 0.5-20 mL 0.5-20 mL, intra-catheter, As needed, line care, Flush Darius Block Hep Locks to keep vein open., Starting on Sun11/02/23 at 1325, Pre-Op, Flush volume based on line type and size. Flush before and after each use. , Indications: Flushing documented in this encounter Orders Medications Ordered That Mukesh ht Not Have Been Administered Count Last Ordered Date First Ordered Date BUPivacaine-EPINEPHrine (MERRY MORATAYA with EPI) 0.5 %-1:200,000 preservative free injection 1 11/02/2023 ceFAZolin (ANCEF) 2,000 mg/5 0 mL in dextrose (premix) 2,000 mg 1 11/02/2023 diphenhydrAMINE (BENADRYL) 5 0 mg/mL injection 12.5 mg 1 11/02/2023 fentaNYL (SUBLIMAZE) preserv ative free syringe 25 mcg 1 11/02/2023 hydrALAZINE (APRESOLINE) injection 5 mg 1 0 11/02/2023 labetaloL (NORMODYNE,TRANDAT E) injection 5 mg 1 11/02/2023 Lactated Ringer's (LR) infusion 1 Lactated Ringer's (LR) irrigation 1 024 lidocaine PF (XYLOCAINE) 10 mg/mL (1 %) preservative free injection 2-10 mg 1 11/02/2023 meperidine (DEMEROL) preserv ative free injection 12.5 mg 1 11/02/2023 naloxone (NARCAN) 0.4 mg/mL injection 0.04-0.4 mg 1 11/02/2023 ondansetron (ZOFRAN) injection 4 mg 1 11/02 oxyCODONE-acetaminophen (PER COCET) 5-325 mg per tablet 2 tablet 1 11/02/2023 prochlorperazine (COMPAZINE) injection 5 mg 1 11/02/2023 scopolamine patch 72 hour 1 patch 1 024 sodium chloride 0.9% flush 0.5-20 mL 1 11/2023 Diet Count Last Ordered Date First Orde red Date ADULT DISCHARGE DIET 1 11/02/2023 Nursing Count Last Ordered Date First Orde red Date ACTIVITY 2 11/02/2023 APPLY ICE TO AFFECTED AREA 1 11/02/2023 DISCHARGE INSTRUCTIONS 8 11/02/2023 ELEVATE EXTREMITY 1 11/02/2023 NURSING COMMUNICATION 3 11/02/2023 PATIENT MAY SHOWER 1 11/02/2023 WOUND CARE 3 11/02/2023 Discharge Count Last Ordered Date First Orde red Date DISCHARGE PATIENT 1 11/02/2023 documented in this encounter Care Teams Director Of Marketing Operations Relationship Specialty Start Date End Date Hema Lauren MD PCP - General Family Medicine 07/26/22 documented as of this encounter
--- OUTSIDE RECORDS SUMMARY | 2024-09-16 02:04 | XMS_ITS | Encounter Summary ---
Author Organization [facility] Address [address] [place] [address] Care Team Providers Care Laboratory Chemical Assistant Name Role Phone Hema Lauren MD Primary Care Provider [phone] Reason for Referral * MRI/CAT/PET Scan (Routine) - Closed Specialty Diagnoses / Procedures Referred By Contac t Referred To Contact Radiology Diagnoses Acute pain of right knee Knee locking, right Procedures [place] [address] [place] [address] Phone: tel: fax: [address] [phone] Referral ID Status Reason Start Date Expiration Date Visits Re quested Visits Authorized [id number] Closed 09/13/2023 10/12/2023 1 1 L LOADER Reason for Visit * MRI/CAT/PET Scan (Routine) - Closed Specialty Diagnoses / Procedures Referred By Contac t Referred To Contact Radiology Diagnoses Acute pain of right knee Knee locking, right Procedures [place] [address] [place] [address] Phone: tel: fax: [address] [phone] Referral ID Status Reason Start Date Expiration Date Visits Re quested Visits Authorized [id number] Closed 09/13/2023 10/12/2023 1 1 Encounter Details Date Type Department Care Team (Latest Contact Info) Description 09/15/2023 2:29 PM METAL LOADER - 09/15/2023 11:59 PM METAL LOADER Hospital Encounter [facility] [address] [place] [id number] Acute pain of right knee; Knee locking, right Discharge Disposition: Discharge to home or self care Social History Tobacco Use Types Packs/Day Years Used Date Smoking Tobacco: Never Personal Safety Answer Date Recorded Getting School Help Needed Not on file 09/12 Sex and Gender Information Value Date Recorded Sex Assigned at Not on file Legal Sex Male 11:56 PM CDT Gender Identity Not on file Sexual Orientation Not on file documented as of this encounter Medications at Time of Discharge ibuprofen (ADVIL,MOTRIN) 200 mg tab/cap Take 2 tablet/capsul e (400 mg total) by mouth every 6 (six) hours as needed for pain acetaminophen (TYLENOL) 325 mg tablet Take by mouth 10/18/2023 documented as of this encounter Discharge Disposition Disposition Code Departure Means Destination Discharge to home or self care documented in this encounter Plan of Treatment Not on file documented as of this encounter Procedures Procedure Name Priority Date/Time Associated Diagnosis Comments MRI KNEE RIGHT WO CONTRAST Schedule Routine, Read Routine (OP Routine) 09/15/2023 3:37 PM METAL LOADER Acute pain of right knee Knee locking, right documented in this encounter Results * MRI Knee Right WO Contrast (09/15/2023 3:37 PM METAL LOADER) Anatomical Region Laterality Modality Lower Extremities Right Magnetic Reson ance 09/16/2023 12:2 2 PM METAL LOADER Impressions 09/16/2023 1:02 PM METAL LOADER 1. ??Longitudinal peripheral tear of the right lateral meniscus body and posterior horn with large, anteriorly displaced bucket-handle fragment. 2. ??Right knee effusion. 3. ??Normal right knee articular cartilage and ligaments. Dictated by: Obed Jones M.D. The radiology attending physician has personally reviewed this study, and had reviewed and/or edited this written report and agrees with it. Electronically signed by: London Gould M.D. Narrative 09/16/2023 1:02 PM METAL LOADER EXAMINATION: 1. MRI right knee without contrast HISTORY: ??Acute onset right knee pain after changing positions while sitting. ??Pain along the lateral aspect of the knee with locking. FINDINGS: Comparison right knee radiograph 09/12/2023 has been reviewed. MR examination of the right knee was performed with an extremity coil. No intravenous or intra-articular contrast was administered for this examination. Sagittal fast spin-echo images, coronal short TR/TE and fast spin-echo images, and transverse fast spin-echo images were obtained. In the medial compartment, the meniscus is intact. There is no focal chondrosis or subchondral edema. In the lateral compartment, there is a bucket-handle tear of the lateral meniscus with large inner meniscal fragment displaced anteriorly within the joint space. There is no focal chondrosis or subchondral edema. In the patellofemoral compartment, there is no focal chondrosis or subchondral edema. The cruciate and collateral ligaments are intact. The extensor mechanism is normal. The popliteus tendon is normal. Moderate right knee joint effusion. No loose bodies are identified. The bone marrow signal is normal. Procedure Note London Gould MD - 09/16/2023 EXAMINATION: 1. MRI right knee without contrast HISTORY: Acute onset right knee pain after changing positions while sitting. Pain along the lateral aspect of the knee with locking. FINDINGS: Comparison right knee radiograph 09/12/2023 has been reviewed. MR examination of the right knee was performed with an extremity coil. No intravenous or intra-articular contrast was administered for this examination. Sagittal fast spin-echo images, coronal short TR/TE and fast spin-echo images, and transverse fast spin-echo images were obtained. In the medial compartment, the meniscus is intact. There is no focal chondrosis or subchondral edema. In the lateral compartment, there is a bucket-handle tear of the lateral meniscus with large inner meniscal fragment displaced anteriorly within the joint space. There is no focal chondrosis or subchondral edema. In the patellofemoral compartment, there is no focal chondrosis or subchondral edema. The cruciate and collateral ligaments are intact. The extensor mechanism is normal. The popliteus tendon is normal. Moderate right knee joint effusion. No loose bodies are identified. The bone marrow signal is normal. IMPRESSION: 1. Longitudinal peripheral tear of the right lateral meniscus body and posterior horn with large, anteriorly displaced bucket-handle fragment. 2. Right knee effusion. 3. Normal right knee articular cartilage and ligaments. Dictated by: Obed Jones M.D. The radiology attending physician has personally reviewed this study, and had reviewed and/or edited this written report and agrees with it. Electronically signed by: London Gould M.D. Jacque Shankar NP IMG MRI PROCED URES Final Result documented in this encounter Visit Diagnoses Diagnosis Acute pain of right knee Knee locking, right documented in this encounter Care Teams Laboratory Chemical Assistant Relationship Specialty Start Date End Date Hema Lauren MD PCP - General Family Medicine 07/26/22 documented as of this encounter
--- OUTSIDE RECORDS SUMMARY | 2024-09-16 02:04 | XMS_ITS | Referral Summary ---
Author Organization [facility] Address [id number] [place] [id number] Care Team Providers Care Tsa Screener Name Role Phone Hema Lauren MD Primary Care Provider + [phone] Allergies Active Allergy Reactions Criticality Noted Date Comments Pollen Extracts Sneezing Low 07/26/2022 Medications ibuprofen (ADVIL,MOTRIN) 200 mg tab/cap Take 2 tablet/capsu le (400 mg total) by mouth every 6 (six) hours as needed for pain Active meloxicam (MOBIC) 15 mg tablet Take 1 tablet (15 mg total) by mouth daily for 10 days 10 tablet 11/02/2023 Active HYDROcodone-nicolasa taminophen (NORCO) 5-325 mg per tabletIndicatio ns:Pain Take 1-2 tablets by mouth every 6 (six) hours as needed for pain 12 tablet 11/02/2023 Active Active Problems Problem Noted Date Diagnosed Date S/P lateral meniscus repair of right knee 2023 Effusion of right knee 12/10/2023 S/P lateral meniscus repair of left knee 024 Acute lateral meniscus tear of right knee 2023 Bucket-handle tear of latera l meniscus of right knee as current injury 10/04/2023 Umbilical hernia without obstruction and without gangrene 06/19/2017 Social History Tobacco Use Types Packs/Day Years [...] on file Sexual Orientation Not on file Last Filed Vital Signs Vital Sign Reading Time Taken Comments Blood Pressure 111/66 11/02/2023 5:45 PM SUPPORT ENGINEER Pulse 63 11/02/2023 5:55 PM SUPPORT ENGINEER Temperature 36.5 ??C (97.7 ??F) 11/02/2023 5:55 PM CS T Respiratory Rate 15 11/02/2023 5:55 PM SUPPORT ENGINEER Oxygen Saturation 98% 11/02/2023 5:55 PM SUPPORT ENGINEER Inhaled Oxygen Concentration - - Weight 90 kg (198 lb 6.4 oz) 11/02/2023 1:40 PM SUPPORT ENGINEER Height 182.9 cm (6') 11/02/2023 1:40 PM SUPPORT ENGINEER Body Mass Index 26.91 11/02/2023 1:40 PM SUPPORT ENGINEER Plan of Treatment Not on file Medical Devices Implanted Type Area Embroidery Machine Operator Device Identifier Shelf Expiration Date Model / Serial / Lot [employer] [place] Meniscal Repair Curved 2 0 Fiberwire Fiberstitch Ar-4570 - [id number] Implanted:Qty: 1 on 11/02/2023 by Ishaan Lee IV, MD at [facility] Right: Knee [employer] 06/30/2027 AR-4570 / / [id number] [employer] [place] Meniscal Repair Curved 2 0 Fiberwire Fiberstitch Ar-4570 - [id number] Implanted:Qty: 1 on 11/02/2023 by Ishaan Lee IV, MD at [facility] Right: Knee [employer] 06/30/2027 AR-4570 / / [id number] [employer] [place] Meniscal Repair Curved 2 0 Fiberwire Fiberstitch Ar-4570 - [id number] Implanted:Qty: 1 on 11/02/2023 by Ishaan Lee IV, MD at [facility] [place] Right: Knee [employer] 05/31/2027 AR-4570 / / [id number] [employer] [place] Meniscal Repair Curved 2 0 Fiberwire [facility] Ar-4570 - [id number] Implanted:Qty: 1 on 11/02/2023 by Ishaan eLe IV, MD at [facility] [place] Right: Knee [employer] 08/30/2027 AR-4570 / / [id number] Insurance [employer] ACCESS CHOICE [employer] ACCESS CHOICE Advance Directives For more information, please contact: [phone] * Full Code (Latest Code Status on File) Date Activated Date Inactivated Comments 11/02/2023 4:39 PM 11/02/2023 10:20 PM Care Teams Tsa Screener Relationship Specialty Start Date End Date Hema Lauren MD PCP - General Family Medicine 07/26/22
--- OUTSIDE RECORDS SUMMARY | 2024-09-16 02:04 | XMS_ITS | Encounter Summary ---
Author Organization [facility] Address [address] [place] [address] Phone Care Team Providers Care Retail Zone Specialist Name Role Phone Hema Lauren MD Primary Care Provider + [phone] Reason for Referral * MRI/CAT/PET Scan (Routine) - Closed Specialty Diagnoses / Procedures Referred By Contac t Referred To Contact Radiology Diagnoses Acute pain of right knee Knee locking, right Procedures [place] [address] [place] [address] Phone: tel: fax: [address] [address] Referral ID Status Reason Start Date Expiration Date Visits Re quested Visits Authorized [id number] Closed 09/13/2023 10/12/2023 1 1 F CYTOTECHNOLOGIST * Diagnostic Imaging (Routine) - Closed Specialty Diagnoses / Procedures Referred By Contac t Referred To Contact Diagnoses Acute pain of right knee Procedures XR Knee Right [place] [address] [place] [address] Phone: tel: fax: [facility] Referral ID Status Reason Start Date Expiration Date Visits Re quested Visits Authorized [id number] Closed 09/12/2023 10/11/2024 1 1 F CYTOTECHNOLOGIST Reason for Visit * Reason Comments Pain Encounter Details Date Type Department Care Team (Late st Contact Info) Description 09/12/2023 5:15 PM STAFF CYTOTECHNOLOGIST Office Visit [facility] [place] [facility] [address] [place] [id number] [place] [address] [place] [address] Acute pain of right knee (Primary Dx); Knee locking, right Social History Tobacco Use Types Packs/Day Years [...] Sign Reading Time Taken Comments Blood Pressure - - Pulse - - Temperature - - Respiratory Rate - - Oxygen Saturation - - Inhaled Oxygen Concentration - - Weight 88.5 kg (195 lb) 09/12/2023 5:11 PM STAFF CYTOTECHNOLOGIST Height 182.9 cm (6') 09/12/2023 5:11 PM STAFF CYTOTECHNOLOGIST Body Mass Index 26.45 09/12/2023 5:11 PM STAFF CYTOTECHNOLOGIST documented in this encounter Patient Instructions * Patient Instructions* Jacque Perez NP - 09/12/2023 5:15 PM STAFF CYTOTECHNOLOGIST Images from the original note were not included. Bryan Nicole 1995 1. Acute pain of right knee RECOMMENDATIONS: Immobilization: Crutches were given for assistance with ambulation. You can discontinue crutches asyour symptoms allow. Advanced imaging: An MRI was ordered to further evaluate. Medications: May take over the counter NSAID: Advil (Ibuprofen) 3 tabs three times a day with food for 7-10 days - OR- Aleve (Naproxen) 2 tabs twice daily with food for 7 -10 days. It is important to take this medication with food to prevent potential side effects, such as stomach upset or ulcers. Do not take this medication if you have been instructed by your primary care physician to not take due to medical reasons. You may take tylenol 1-2 tabs three times/day as needed for additional pain control Ice the affected area for 20mins after activities and as needed for pain/swelling. Activity modification: Limit excessive activity at this time. Follow up: I will call you with the results of the MRI The recommendations you received in the [facility] was an initiation of care for your urgent problem. It is very important that you follow the treatment plan as outlined with you at your visit. If your symptoms should worsen, you can reach your Provider through the office at [phone] during regular business hours M-F from 8:00 a.m. to 4:30 p.m. After 4:30 p.m. or on weekends, please call the Physician/Exchange at . If your symptoms worsen and you are unable to reach anyone at either of the numbers provided, you should seek further medical attention in the ER or with your primary care provider. VALENTINA Sena [facility] Division of Orthopedics In collaborative practice with Zak Valenzuela M.D. Portions of this note were dictated using M*Modal Fluency Direct speech recognition software. Please excuse any services account manager errors. F CYTOTECHNOLOGIST documented in this encounter Progress Notes * Jacque Perez NP - 09/12/2023 5:15 PM CST Images from the original note were not included. NEW PATIENT VISIT [facility] CHIEF COMPLAINT Right knee pain REFERRING PROVIDER Hema Lauren MD HISTORY OF PRESENT ILLNESS Bryan Nicole is a 28 y.o. who presents to the orthopedic injury clinic with acute onset of right knee pain. This started 5 hours ago. He states he was sitting and as he changed positions he had immediate onset of sharp pain over the lateral aspect of his knee. He has tried stretching the area but he is unable to straighten his leg. He can not put weight on the area. He is tried heat and Tylenol.He is had similar intermittent symptoms over the past year. Denies anyone specific trauma or injurythat started this all. He states usually his symptoms lasts for a matter of minutes and he is able to reposition the knee and stretch it and they go away. The pain he is having today is more severe and more persistent. Original injury/onset of pain was acutely today 09/12/2023 with recurrent symptoms over the past year PAST MEDICAL HISTORY He has no past medical history on file. PAST SURGICAL HISTORY He has no past surgical history on file. INITIAL REVIEW OF MEDICATIONS He has a current medication list which includes the following prescription(s): acetaminophen and ibuprofen. ALLERGIES He is allergic to pollen extracts. SOCIAL HISTORY He reports that he has never smoked. He does not have any smokeless tobacco history on file. No alcohol history on file. FAMILY HISTORY His family history is not on file. PHYSICAL EXAMINATION CONSTITUTIONAL/GENERAL: Well-appearing, in no apparent distress. Weight: 88.5 kg (195 lb) . Height:182.9 cm (6') PSYCHIATRIC: Alert, cooperative, appropriate mood and affect SKIN: Intact. No lesions or rashes on exposed skin. MUSCULOSKELETAL: Exam limited to right knee. Inspection: The knee is without swelling, ecchymosis, or deformity. There is no effusion. Unable tobear weight due to pain. Palpation: Tenderness to palpation over the posteriolateral joint line. No pain over the anterolateral joint line. There is no pain over the medial joint line. No patellofemoral crepitus. ROM: 120/140?? of flexion, full extension. Pain in final 15 degrees of extension. Extensor mechanism intact. Strength: 5/5 knee extension, knee flexion, ankle dorsiflexion, ankle plantar flexion Special Tests: Patellar grind: negative Patellar apprehension with lateral patellar translation: negative Lachmans: negative McMurrays: positive for clunk in lateral knee, no significant pain Thessaly: unable to perform Varus stress testing at 0 and 30?? of knee flexion: negative No pain or laxity Valgus stress testing at 0 and 30?? of knee flexion: negative No pain or laxity NEUROLOGIC: Sensation is intact to light touch in the involved extremity. VASCULAR: Brisk capillary refill is intact distally in the involved extremity. REVIEW OF IMAGING/STUDIES X-rays ordered and interpreted by myself in the office today including 3 views of the right knee. No acute osseous abnormality noted. Joint spaces maintained and alignment is normal. IMPRESSION/DIAGNOSIS Recurrent right knee pain Right knee locking TREATMENT/PLAN The physical exam findings, x-rays and impression are reviewed. Based on the findings, signs and symptoms are consistent with the above impression. I have discussed treatment options with patient. He is having mechanical symptoms in the office today with locking of the right knee. Pain over the posteriolateral joint line concerning for displaced/flipped lateral meniscal tear. MRI was ordered to further evaluate. He is having difficulty bearing weight. Crutches were given for assistance with ambulation. He can discontinue crutches as his symptoms allow. He can take [id number] NSAIDs or Tylenol as neededfor pain. He can ice for 20 minutes after activities and as needed for pain. He is to limit excessive activity at this time. I will call him with the results of the MRI to develop a treatment plan moving forward. The patient is in agreement with above treatment plan and all questions are answered today. VALENTINA Sena [facility] Department of Orthopaedic Surgery Working in collaboration with Zak Valenzuela M.D. Portions of this note were dictated using [employer] speech recognition software. Please excuse any services account manager errors. F CYTOTECHNOLOGIST documented in this encounter Plan of Treatment Not on file documented as of this encounter Procedures Procedure Name Priority Date/Time Associated Diagnosis Comments XR KNEE RIGHT 3 VIEWS Schedule Routine, Read Routine (OP Routine) 09/12/2023 5:36 PM STAFF CYTOTECHNOLOGIST Acute pain of right knee documented in this encounter Results * MRI Knee Right WO Contrast (09/15/2023 3:37 PM STAFF CYTOTECHNOLOGIST) Anatomical Region Laterality Modality Lower Extremities Right Magnetic Reson ance 09/16/2023 12:2 2 PM STAFF CYTOTECHNOLOGIST Impressions 09/16/2023 1:02 PM STAFF CYTOTECHNOLOGIST 1. ??Longitudinal peripheral tear of the right [...] London Gould M.D. Narrative 09/16/2023 1:02 PM STAFF CYTOTECHNOLOGIST EXAMINATION: 1. MRI right knee without contrast [...] NP IMG MRI PROCED URES Final Result * XR Knee Right 3 View (09/12/2023 5:36 PM STAFF CYTOTECHNOLOGIST) Anatomical Region Laterality Modality Lower Extremities, Knee Right Computed Radiography 09/13/2023 6:13 AM STAFF CYTOTECHNOLOGIST Impressions 09/13/2023 6:13 AM STAFF CYTOTECHNOLOGIST Normal radiographs of the right knee. Electronically signed by: Miah Jacobs M.D. Narrative 09/13/2023 6:13 AM STAFF CYTOTECHNOLOGIST XR KNEE RIGHT 3 VIEWS HISTORY: ??Right knee pain. FINDINGS: ??3 views of the right knee are obtained and interpreted without comparison. There is no fracture. ??The joint spaces are preserved. ??Alignment and soft tissues are normal. ??There is no effusion. Procedure Note Miah Jacobs MD - 09/13/2023 XR KNEE RIGHT 3 VIEWS HISTORY: Right knee pain. FINDINGS: 3 views of the right knee are obtained and interpreted without comparison. There is no fracture. The joint spaces are preserved. Alignment and soft tissues are normal. There is no effusion. IMPRESSION: Normal radiographs of the right knee. Electronically signed by: Miah Jacobs M.D. Jacque Shankar NP IMG XR PROCEDU RES Final Result documented in this encounter Visit Diagnoses Diagnosis Acute pain of right knee- Primary Knee locking, right Acute pain of right knee Knee locking, right documented in this encounter Care Teams Retail Zone Specialist Relationship Specialty Start Date End Date Hema Lauren MD PCP - General Family Medicine 07/26/22 documented as of this encounter
--- OUTSIDE RECORDS SUMMARY | 2024-09-16 02:04 | XMS_ITS | Encounter Summary ---
Author Organization [facility] Address [address] [place] [address] Phone Care Team Providers Care Emergency Management Program Specialist Name Role Phone Hema Lauren MD Primary Care Provider [phone] Reason for Referral * Consultation (Routine) - Pending Review Specialty Diagnoses / Procedures Referred By Venita t Referred To Contact Physical Therapy Diagnoses S/P lateral [place] [address] [place] [address] Phone: tel: fax: External Order Referral ID Status Reason Start Date Expiration Date Visits Requested Visits Authorized [id number] Pending Review Evaluate and Treat 11/12/2023 12/11/2024 8 8 Question Answer PTRFR PT Evaluate and Treat Therapy options discussed with patient? Yes Location provided for therapy services is: Patient requested/Patient preferred Please select the performing region: External Order [[id number]] # of visits: 8 Comments Today: 11/12/23 Name: Bryan Nicole : 1995 Last Surgery Date: 11/02/2023 Diagnosis: s/p right Knee Arthroscopic Meniscal Repair lateral Visits: 8 Frequency: 2x/week Duration: 4 weeks -Evaluate and Treat -Home Program ARTHROSCOPIC MENISCAL REPAIR PHYSICAL THERAPY PRESCRIPTION Instructions/Modifications: Phase: 2 PHASE I: WEEK 0-2 WBAT brace locked in full extension Advance ROM when NWB as tolerated -Active -Active-Assisted -Passive Quad Isometrics/E-stim/SLR Modalities as indicated PHASE II: WEEK 2-6 WBAT brace locked in extension Quadriceps/Hamstring stretching Quad Isometrics/E-stim/SLR Bicycle no resistance when ROM allows Quadriceps/Hamstring Strengthening Achilles Tendon Stretching Hip abduction/adduction PHASE III: WEEK 6-12 (ROM with WB) WBAT with brace 0-90?? Restore full ROM with minimal effusion/pain and functional strength and control Bicycle Hip abductor/adductor/gastroc stretching and strengthening Strengthening isokinetic Quadriceps/hamstrings PHASE IV: WEEK 12-18 (Discontinue brace) Wean out of brace when quad control allows Full arc quad/hamstring resistance exercises Functional exercise (step up/down, sports cord) Stretching/ROM/bicycle Strengthening leg press/squat Hip abductor/adductor/gastroc strengthening PHASE V: 18-24 weeks (Restore function/return to sport) No deep squats until 6 months postop Advanced functional activities Begin running Aggressive strengthening Agility drills Progress running program - cutting Please send rogress notes. Ishaan Lee IV, MD SCHEDULING PHYSICAL THERAPY APPOINTMENT 1. Call the member service number on the back of your insurance card to find out if you have: Physical therapy benefits; if YES Where you can go for physical therapy. Does Physical therapy service require prior authorization; 'yes or no' (ONLY if yes, make sure you follow the instructions on #3). 2. Call the therapy facility and schedule your appointment. 3. If prior authorization is required by your insurance company for physical therapy services contact Pre-Certification at [phone]. If pre-certification/ prior authorization is required by your insurance company you must call at least 48 hours prior to your therapy appointment to ensure authorization is obtained from insurance company. - Please give your name - Date of -Phone number of the therapy facility -Date of your appointment -Your physician's name 4. Your physician's office will give you prescription/orders at the time of your appointment to take to the therapist. The therapist will not see you without your prescription/orders. 5. Workers' Compensation patients: You must call your manager of sustainability to be referred to physical therapy. Ishaan Lee IV, MD T CARE PROVIDER Reason for Visit * Reason Comments Post-op Encounter Details Date Type Department Care Team (Late st Contact Info) Description 11/12/2023 1:50 PM ADULT CARE PROVIDER Office Visit [facility] Orthopaedic Surgery [address] [facility] [facility] [address] [place] [address] [place] [address] [place] [address] [place] [address] S/P lateral meniscus repair of left knee (Primary Dx) Social History Tobacco Use Types Packs/Day Years [...] on file documented as of this encounter Progress Notes * Ishaan Lee IV, MD - 11/12/2023 1:50 PM CST Images from the original note were not included. Patient Name: Bryan Nicole Date: 11/10/2023 INTERIM HISTORY: Follow up from Right Knee Arthroscopic Lateral Meniscus Repair - Right and Right - Right on 11/02/2023 The patient has recently had pain: every couple of days The current level of pain is: 0 The worst level of pain in the last few days is: 3 Wound complaints: None Patient is recovering appropriately PHYSICAL EXAM: Incision: well healed Erythema: No Edema: No Effusion: Yes trace Ecchymosis: No Discharge: No Knee out to full extension in brace IMPRESSION/DIAGNOSIS: Recovering appropriately 10 days after surgery. PLAN: Sutures were removed and steri-strips were applied Arthroscopic pictures were reviewed with the patient and I showed him why I indicated him for repair with a very peripheral tear of the posterior horn of the lateral meniscus. Start Physical Therapy Continue weight-bearing as tolerated with the brace locked out in extension Reviewed precautions Return to clinic: 4 weeks Ishaan Lee IV, MD T CARE PROVIDER documented in this encounter Plan of Treatment Scheduled Referrals Name Type Priority Associated Diagnoses Order Schedule Ambulatory referral order to Physical Therapy - Outpatient Referral Routine S/P lateral meniscus repair of left knee Expected: 11/26/2023 (Approximate), Expires: 11/12/2024 documented as of this encounter Visit Diagnoses Diagnosis S/P lateral meniscus repair of left knee- Primary documented in this encounter Care Teams Emergency Management Program Specialist Relationship Specialty Start Date End Date Hema Lauren MD PCP - General Family Medicine 07/26/22 documented as of this encounter
--- OUTSIDE RECORDS SUMMARY | 2024-09-16 02:04 | XMS_ITS | Encounter Summary ---
Author Organization [facility] Address [address] [place] [address] Phone Care Team Providers Care Brim Curler Name Role Phone Hema Lauren MD Primary Care Provider + [phone] Encounter Details Date Type Department Care Team (Late st Contact Info) Description 09/17/2023 Telephone [facility] Orthopedic [facility] - [facility] Injury Clinic [address] [place] [address] [place] [address] [facility] [address] [facility] [address] [place] [address] Social History Tobacco Use Types Packs/Day Years Used Date Smoking Tobacco: Never Personal Safety Answer Date Recorded Getting School Help Needed Not on file 09/12 Sex and Gender Information Value Date Recorded Sex Assigned at Not on file Legal Sex Male 11:56 PM CDT Gender Identity Not on file Sexual Orientation Not on file documented as of this encounter Miscellaneous Notes * Telephone Encounter - Jacque Perez NP - 09/17/2023 7:57 AM CST Results of the R knee MRI dated 09/15/2023 discussed with the patient. IMPRESSION: 1. Longitudinal peripheral tear of the right lateral meniscus body and posterior horn with large, anteriorly displaced bucket-handle fragment. 2. Right knee effusion. 3. Normal right knee articular cartilage and ligaments. He states right now he knee is feeling okay and back to baseline. Explained that given the unstablebucket-handle fragment he should be evaluated by one of our sports surgeons to discuss definitive treatment, especially because he has had intermittent symptoms of pain and locking in this region over the past year. He states he will call back when he knows what his upcoming schedule will be to arrange that follow up appointment. He can call [phone] or [phone] for assistance with scheduling. All questions answered. Patient verbalized understanding and is in agreement with the plan of care. BALL WINDER documented in this encounter Plan of Treatment Not on file documented as of this encounter Visit Diagnoses Not on filedocumented in this encounter Care Teams Brim Curler Relationship Specialty Start Date End Date Hema Lauren MD PCP - General Family Medicine 07/26/22 documented as of this encounter
--- OUTSIDE RECORDS SUMMARY | 2024-09-16 02:04 | XMS_ITS | Encounter Summary ---
Author Organization [facility] Address [address] [place] [address] Phone Care Team Providers Care Shucker Name Role Phone Hema Lauren MD Primary Care Provider [phone] Reason for Referral * Consultation (Routine) - Pending Review Specialty Diagnoses / Procedures Referred By Contac t Referred To Contact Physical Therapy Diagnoses S/P lateral meniscus repair of right [place] [address] [place] [address] Phone: tel: fax: External Order Referral ID Status Reason Start Date Expiration Date Visits Requested Visits Authorized [id number] Pending Review Evaluate and Treat 12/10/2023 01/08/2025 12 12 Question Answer PTRFR PT Evaluate and Treat Therapy options discussed with patient? Yes Location provided for therapy services is: Patient requested/Patient preferred Please select the performing region: External Order [[id number]] # of visits: 12 Comments Today: 12/10/23 Name: Bryan Nicole : 1995 Last Surgery Date: 11/02/2023 Diagnosis: s/p right Knee Arthroscopic Meniscal Repair lateral Visits: 12 Frequency: 2x/week Duration: 6 weeks -Evaluate and Treat -Home Program ARTHROSCOPIC MENISCAL REPAIR PHYSICAL THERAPY PRESCRIPTION Instructions/Modifications: Phase: 6 PHASE I: WEEK 0-2 WBAT brace locked [...] for physical therapy services contact Pre-Certification at [phone]. If pre-certification/ prior authorization is required by [...] Workers' Compensation patients: You must call your case planner to be referred to physical therapy. Ishaan Lee IV, MD Reason for Visit * Reason Comments Post-op Encounter Details Date Type Department Care Team (Late st Contact Info) Description 12/10/2023 1:30 PM CDT Office Visit [facility] Orthopaedic Surgery [address] [place] [address] [place] [address] [place] [address] [place] [address] S/P lateral meniscus repair of right knee (Primary Dx); Effusion of right knee Social History Tobacco Use Types Packs/Day Years [...] Notes * Ishaan Lee IV, MD - 12/10/2023 1:30 PM CDT Images from the original note were not included. Patient Name: Bryan Nicole Date: 12/10/2023 INTERIM HISTORY: Follow up from Right Knee Arthroscopic Lateral Meniscus Repair - Right on 11/02/2023 The patient has recently had pain: every couple of days The current level of pain is: 0 The worst level of pain in the last few days is: 3 Wound complaints: None Patient is recovering appropriately but has not been a PHYSICAL EXAM: Incision: well healed Erythema: No Edema: No Effusion: Yes large Ecchymosis: No Discharge: No 0-100 degrees of flexion IMPRESSION/DIAGNOSIS: Recovering appropriately except for swelling 6 weeks after surgery. PLAN: Under sterile conditions, I aspirated 30 mLs of benign orange serous fluid. I encouraged icing. Progress Physical Therapy with the brace allowing 0-90 degrees of flexion Reviewed precautions Return to clinic: 6 weeks Ishaan Lee IV, MD documented in this encounter Plan of Treatment Scheduled Referrals Name Type Priority Associated Diagnoses Order Schedule Ambulatory referral order to Physical Therapy - Outpatient Referral Routine S/P lateral meniscus repair of right knee Effusion of right knee Expected: 12/19/2023 (Approximate), Expires: 12/04/2024 documented as of this encounter Visit Diagnoses Diagnosis S/P lateral meniscus repair of right knee- Primary Effusion of right knee documented in this encounter Care Teams Shucker Relationship Specialty Start Date End Date Hema Lauren MD PCP - General Family Medicine 07/26/22 documented as of this encounter
--- OUTSIDE RECORDS SUMMARY | 2024-09-16 02:04 | XMS_ITS | Encounter Summary ---
Author Organization [facility] Address [address] [place] [address] Care Team Providers Care Civil Design Technician Name Role Phone Hema Lauren MD Primary Care Provider [phone] Reason for Visit * Diagnostic Imaging (Routine) - Closed Specialty Diagnoses / Procedures Referred By Contac t Referred To Contact Diagnoses Left shoulder pain, unspecified chronicity Procedures XR Shoulder Left 2+ View Zak Newell MD [address] [place] [address] Phone: tel: fax: [facility] Referral ID Status Reason Start Date Expiration Date Visits Re quested Visits Authorized [id number] Closed 07/26/2022 08/25/2023 1 1 Encounter Details Date Type Department Care Team (Latest Contact Info) Description 07/26/2022 4:33 PM CDT - 07/26/2022 11:59 PM CDT Hospital Encounter [facility] Radiology at the Orth[facility] [address] [place] [id number] Zak Newell MD [address] [place] [address] Discharge Disposition: Discharge to home or self care Social History Tobacco Use Types Packs/Day Years Used Date Smoking Tobacco: Never Sex and Gender Information Value Date Recorded Sex Assigned at Not on file Legal Sex Male 11:56 PM CDT Gender Identity Not on file Sexual Orientation Not on file documented as of this encounter Discharge Disposition Disposition Code Departure Means Destination Discharge to home or self care documented in this encounter Plan of Treatment Not on file documented as of this encounter Procedures Procedure Name Priority Date/Time Associated Diagnosis Comments XR SHOULDER LEFT 2 OR MORE VIEWS Schedule Routine, Read Routine (OP Routine) 07/26/2022 4:46 PM CDT Left anterior shoulder pain documented in this encounter Results * XR Shoulder Left 2+ View (07/26/2022 4:46 PM CDT) Anatomical Region Laterality Modality Upper Extremities, Shoulder Left Comp uted Radiography 07/26/2022 4:50 PM CDT Impressions 07/26/2022 4:50 PM CDT Normal radiographs of the left shoulder. Electronically signed by: Quinton Bahena MD Narrative 07/26/2022 4:50 PM CDT EXAMINATION: XR SHOULDER LEFT 2 OR MORE VIEWS HISTORY: Left shoulder pain COMPARISON: None available. FINDINGS: 4 views of the left shoulder submitted for interpretation. No evidence of acute fracture or dislocation no acromioclavicular or glenohumeral joint osteoarthritis. Normal alignment. Procedure Note Quinton Bahena MD - 07/26/2022 EXAMINATION: XR SHOULDER LEFT 2 OR MORE VIEWS HISTORY: Left shoulder pain COMPARISON: None available. FINDINGS: 4 views of the left shoulder submitted for interpretation. No evidence of acute fracture or dislocation no acromioclavicular or glenohumeral joint osteoarthritis. Normal alignment. IMPRESSION: Normal radiographs of the left shoulder. Electronically signed by: Quinton Bahena MD Zak Newell MD IMG XR PROCEDURES Final Re sult documented in this encounter Visit Diagnoses Not on filedocumented in this encounter Care Teams Civil Design Technician Relationship Specialty Start Date End Date Hema Lauren MD PCP - General Family Medicine 07/26/22 documented as of this encounter
--- OUTSIDE RECORDS SUMMARY | 2024-09-16 02:04 | XMS_ITS | Encounter Summary ---
Author Organization [facility] Address [address] [place] [address] Care Team Providers Care Business Analytics Faculty Member Name Role Phone Hema Lauren MD Primary Care Provider [phone] Reason for Visit * Auth/Cert (Routine) Specialty Diagnoses / Procedures Referred By Venita t Referred To Contact Diagnoses Acute lateral meniscus tear of right knee, initial encounter Acute lateral meniscus tear of right knee, initial encounter [S83.281A] Procedures VA ARTHRS KNE SURG W/MENISCECTOMY MED/LAT W/SHVG VA ARTHROSCOPY KNEE W/MENISCUS RPR MEDIAL/LATERAL RIGHT KNEE ARTHROSCOPIC PARTIAL LATERAL MENISCECTOMY VERSUS REPAIR RIGHT Referral ID Status Reason Start Date Expiration Date Visits Re quested Visits Authorized [id number] 1 1 Encounter Details Date Type Department Care Team (Late st Contact Info) Description 11/02/2023 3:30 PM HEALTHCARE ECONOMICS CONSULTANT - 11/02/2023 4:15 PM HEALTHCARE ECONOMICS CONSULTANT Surgery [facility] Operating Room at the Orthopedic Center [address] [place] [address] Ishaan Lee IV, MD [address] [place] [address] RIGHT KNEE ARTHROSCOPIC LATERAL MENISCUS REPAIR Surgery Details Date/Time Status Location OR Service Patient Class Case Class Case Type Trauma Case? 11/02/2023 3:30 PM Posted [facility] OPERATING ROOM OR 3 Orthopaedics Outpatient Elective Panel 1 Procedure LRB Anes Op Region Wound Class Comments RIGHT KNEE ARTHROSCOPIC LATE RAL MENISCUS REPAIR Right General Knee Class I - Clean RIGHT Right General Knee Class I - Clean Surgeon Surgeon Role Service Panel Ishaan Lee IV, MD Primary Orthopaedics 1 Emeterio Ortega, Fellow Orthopaedics 1 documented in this encounter Social History Tobacco Use Types Packs/Day Years [...] Sign Reading Time Taken Comments Blood Pressure 112/72 11/02/2023 1:40 PM HEALTHCARE ECONOMICS CONSULTANT Pulse 62 11/02/2023 1:40 PM HEALTHCARE ECONOMICS CONSULTANT Temperature 36.4 ??C (97.5 ??F) 11/02/2023 1:40 PM CS T Respiratory Rate 16 11/02/2023 1:40 PM HEALTHCARE ECONOMICS CONSULTANT Oxygen Saturation 99% 11/02/2023 1:40 PM HEALTHCARE ECONOMICS CONSULTANT Inhaled Oxygen Concentration - - Weight 90 kg (198 lb 6.4 oz) 11/02/2023 1:40 PM HEALTHCARE ECONOMICS CONSULTANT Height 182.9 cm (6') 11/02/2023 1:40 PM HEALTHCARE ECONOMICS CONSULTANT Body Mass Index 26.91 11/02/2023 1:40 PM HEALTHCARE ECONOMICS CONSULTANT documented in this encounter Medications at Time [...] tear of right knee, initial encounter [S83.281A] Planned Procedure RIGHT KNEE ARTHROSCOPIC PARTIAL LATERAL [...] Lee IV, MD at 11/02/2023 2:45 PM HEALTHCARE ECONOMICS CONSULTANT THCARE ECONOMICS CONSULTANT THCARE ECONOMICS CONSULTANT documented in this encounter Miscellaneous Notes * Perioperative Nursing Note - Morenita De La Garza RN - 11/02/2023 6:08 PM HEALTHCARE ECONOMICS CONSULTANT Patient discharged to home. Instructions given to patient and parents, all verbalize understanding,all questions answered. Patient is NWB for 2 days, and then WBAT with tscope brace locked in extension starting on POD 3. Patient has crutches. Patient given a disposable ice pack to take home. Patient escorted to car in wheelchair for discharge. THCARE ECONOMICS CONSULTANT * Perioperative Nursing Note - Morenita De La Garza RN - 11/02/2023 4:34 PM HEALTHCARE ECONOMICS CONSULTANT Pt in bed in lowest position locked with both side rails up, nonslip socks applied, curtain open and patient near nurses station. Pt will not be left behind curtain alone. Pt assisted in all care in recovery. Leland score based on pre-op condition. THCARE ECONOMICS CONSULTANT * Brief Op Note - Emeterio Ortega DO - 11/02/2023 4:24 PM CST Operative Progress Note Surgical Team: Surgeon(s) and Role: * Ishaan Lee IV, MD - Primary * Emeterio Ortega DO - Fellow Anesthesiologist: Rosa Rice MD BOTTOMING MACHINE OPERATOR: Adry Cade CRNA Subsystems Engineer: Debbie Francisco RN Scrub: Marie Lipscomb RN [...] Implant Name Type Inv. Item Serial No. Tester Printed Circuit Boards Lot No. LRB No. Used Action [employer] [place] Meniscal Repair Curved 2 0 Fiberwire Fiberstitch AR-4570 - [id number] [employer] Al[employer] Meniscal Repair Curved 2 0 [employer] Fiberstitch AR-4570 [employer] [id number] Right 1 Implanted [employer] Al[place] Meniscal Repair Curved 2 0 [employer] Fiberstitch AR-4570 - [id number] [employer] Alma Meniscal Repair Curved 2 0 Fiberwire Fiberstitch AR-4570 [employer] [id number] Right 1 Implanted [employer] Alma Meniscal Repair Curved 2 0 Fiberwire Fiberstitch AR-4570 - [id number] [employer] Alma Meniscal Repair Curved 2 0 Fiberwire Fiberstitch AR-4570 [employer] [id number] Right 1 Implanted [employer] Alma Meniscal Repair Curved 2 0 [employer] Fiberstitch AR-4570 - [id number] [employer] Alma Meniscal Repair Curved 2 0 Fiberwire Fiberstitch [...] Lee IV, MD at 11/02/2023 5:25 PM HEALTHCARE ECONOMICS CONSULTANT THCARE ECONOMICS CONSULTANT THCARE ECONOMICS CONSULTANT * Perioperative Nursing Note - Morenita De La Garza RN - 11/02/2023 1:48 PM HEALTHCARE ECONOMICS CONSULTANT Patient's parents Reza and Jo are here with patient and will care for him for 24 hours after surgery. Patient has crutches. THCARE ECONOMICS CONSULTANT * Op Note - Ishaan Lee IV, MD - 11/02/2023 12:00 AM CST PREOPERATIVE DIAGNOSIS Right knee displaced bucket-handle lateral meniscus tear. POSTOP DIAGNOSIS Right knee displaced bucket-handle lateral meniscus tear. PROCEDURE Right knee arthroscopic lateral meniscus repair. SURGEON Dr. Ishaan Lee. WAISTBAND SETTER Dr. Emeterio Ortega. ANESTHESIA General. IV FLUIDS [...] in the room. Job ID/Internal Job ID: [id number] THCARE ECONOMICS CONSULTANT * Pre-Procedure Instructions - Jesi Bruno RN - 11/01/2023 3:00 PM HEALTHCARE ECONOMICS CONSULTANT We are pleased that you and your doctor have chosen [facility] for your surgery. We hope the following information will help make your visit a pleasant one. The name of the building is [facility] [place] in [place]. Directions to facility (address is [address] [place] [address] road, [address] [facility] exit. Zip [address] When you enter the building, look directly to your left, you will see 2 glass double doors. These double doors say [address]. Go through those double doors and check in with the personnel security specialist. Patient has own crutches and knows how [...] out. Instructed to patient to refer to [facility] surgery guide page 6 for any questions regarding eating and drinking day of surgery. For medications that the Nurse Practitioner instructed you to take on the morning of surgery, take the medications with a few sips of water. Pt's. TRIP LEE [phone] will be with patient and care for [...] or purchase it from the refreshment area. THCARE ECONOMICS CONSULTANT * Pre-Procedure Instructions - Deepika Benitez NP - 10/26/2023 1:24 PM HEALTHCARE ECONOMICS CONSULTANT Center for Preoperative Assessment and Planning CPAP Clinic Location: [facility] CPAP The night before your surgery: * Do [...] going to be admitted after surgery at [facility], COVID testing may be performed on the day of surgery, even if you are up to date on your COVID-19 vaccine. * If having surgery at [facility], you may want to bring a credit card if you want to use our Mobile Pharmacy for your discharge medications. Mobile pharmacy is not available at [facility], the Orthopedic Center, or the [place] [facility]. Outpatient Surgery: * You must have a [...] with COVID-19. You test positive for COVID-19. THCARE ECONOMICS CONSULTANT * Perioperative Nursing Note - Aubrey Henley RN - 10/18/2023 4:08 PM HEALTHCARE ECONOMICS CONSULTANT Center for Preoperative Assessment and Planning Perioperative Nursing Note Telephone Preoperative Evaluation ([facility]) - TELEPHONE ONLY, NO PHYSICAL EXAM Date: [...] provided Information Provided on Healthcare Directives: Yes Communication/Groover And Striper Operator Needs Communication Needs: None Does caregiver's language differ from patient's?: No Assistive Devices/DME: None Discharge Planning Type of Residence: Private residence Living Arrangements: Spouse/significant other Support Systems: Spouse/significant other, Parent Assistance Needed: Father to provide discharge transportation Patient expects to be discharged to:: Private residence EMBEDDED LINUX ENGINEER NO ADDITIONAL COMMENTS/ FOLLOW UP THCARE ECONOMICS CONSULTANT * Pre-Procedure Instructions - Aubrey Henley RN - 10/18/2023 4:08 PM HEALTHCARE ECONOMICS CONSULTANT CENTER FOR PREOPERATIVE ASSESSMENT AND PLANNING (CPAP) [...] remove nail coverings, artificial nails and nail [facility] prior to the day of surgery. You should leave your valuables and any jewelry at home. No metal or piercings are allowed in the operating room. You should bring your insurance card, a photo ID (example: C Win[employer] Developer's License) and a method of payment for [...] Chart. If you are having surgery at [facility], please arrive on the day of [...] Pathway to Excellent [facility] by the followinglink: [email or web address] How To Prepare Your Skin For Surgery [...] Remove nail coverings, artificial nails and nail [facility]. The Morning of Surgery: Take a shower [...] questions, please call the CPAP Staff at [phone], Sunday-Sunday 8am-4:30pm. All patients should read the below section: COVID 19 Updates & Visitor Policy: Please access [email or web address] for the most updated information. Information on [facility] & the Orthopedic Center: Please view [email or web address] (Patient & Visitor Information) for additional details regarding Advanced Directive forms, AWARE, directions, parking information, lodging, Internet access, dining and more. Information on [facility] or [facility] ([facility]): Please view [email or web address] (Patient and Visitor Information) for parking/directions and more. For MyChart information, to activate account or password recovery, please go to [email or web address] or call [phone] (toll-free: [phone]), Sun- Sunday 8am-5pm. Information for Suicide Prevention: National Suicide Prevention Lifeline (8-012- 731-TALK (0691)) or call or text 941. Chat resources: [email or web address]. Surgery Times: For patients having surgery @ The [facility], if your surgeon's office has not notified you of your surgery time by NOON THE BUSINESS DAY BEFORE your surgery, please call the surgery center [phone]. The Center for Preoperative Assessment & Planning (CPAP) does not provide arrival times for the day of surgery or provide the duration of surgery. This information is provided by your surgeon'soffice or by the center where you are having surgery. We appreciate your understanding. THCARE ECONOMICS CONSULTANT documented in this encounter Plan of Treatment Not on file documented as of this encounter Procedures Procedure Name Priority Date/Time Associated Diagnosis Comments ARTHROSCOPY KNEE MENISCAL REPAIR 11/02/2023 3:25 PM HEALTHCARE ECONOMICS CONSULTANT Acute lateral meniscus tear of right knee, initial encounter ARTHROSCOPY KNEE MENISCAL DEBRIDEMENT 11/02/2023 3:25 PM HEALTHCARE ECONOMICS CONSULTANT Acute lateral meniscus tear of right knee, initial encounter documented in this encounter Visit Diagnoses Diagnosis Acute lateral meniscus tear of right knee- Primary Bucket-handle tear of lateral meniscus of right knee as current injury, subsequent encounter Acute lateral meniscus tear of right knee, initial encounter documented in this encounter Admitting Diagnoses Diagnosis Acute lateral meniscus tear of right knee documented in this encounter Administered Medications Inactive Administered Medications - up to 3 most recent administrations Medication Order MAR Action Action Date Dose Rate Site BUPivacaine-EPINEPHrine (MARCAINE with EPI) 0.5 %-1:200,000 preservative free injection As needed, Starting on Sun11/02/23 at 1552, Intra-Op Given 11/02/2023 3:52 PM HEALTHCARE ECONOMICS CONSULTANT 10 mL HYDROcodone-acetaminophen (NORCO) 5-325 mg per tablet 1 tablet 1 tablet, oral, Every 30 min PRN, 2nd line for pain, Starting on Sun11/02/23 at 1639, For 2 doses, Phase I, Indications: PainIndications:Pain Given 11/02/2023 5:24 PM HEALTHCARE ECONOMICS CONSULTANT 2 tablets Lactated Ringer's (LR) infusion 30 mL/hr, intravenous, Continuous, Starting on Sun11/02/23 at 1400, Pre-Op, Use a 500 ml bag for End Stage Renal Disease Patients New Bag 11/02/2023 4:26 PM HEALTHCARE ECONOMICS CONSULTANT Rate/Dose Verify 11/02/2023 3:22 PM HEALTHCARE ECONOMICS CONSULTANT 30 mL/h r New Bag 11/02/2023 1:51 PM HEALTHCARE ECONOMICS CONSULTANT 30 mL/hr 30 mL/hr Lactated Ringer's (LR) irrigation As needed, Starting on Sun11/02/23 at 1552, Intra-Op Given 11/02/2023 3:52 PM HEALTHCARE ECONOMICS CONSULTANT 6,000 mL Operative Joint Spac e lidocaine PF (XYLOCAINE) 10 mg/mL (1 %) preservative free injection 2-10 mg 2-10 mg (0.2-1 mL), subcutaneous, Once as needed, pain with IV placement, Starting on Sun11/02/23 at 1325, For 1 dose, Pre-Op, Administer volume needed to infiltrate IV site. Given 11/02/2023 1:51 PM HEALTHCARE ECONOMICS CONSULTANT 2 mg Right Forearm documented in this encounter Discontinued Medications Medication Sig Discontinue Reason Start Date End Da te acetaminophen (TYLENOL) 325 mg tablet Take by mouth Therapy completed 10/18/2023 documented as of this encounter Active and Recently Administered Medications Times are shown in HEALTHCARE ECONOMICS CONSULTANT. Scheduled Medication Order 10/31/2023 11/01/2023 11/02/2023 ceFAZolin [...] (Given - Provid er: Ishaan Lee IV, ) diphenhydrAMINE (BENADRYL) 50 mg/mL injection 12.5 mg [...] Count Last Ordered Date First Ordered Date ceFAZolin (ANCEF) 2,000 mg/5 0 mL in dextrose (premix) 2,000 mg 1 11/02/2023 diphenhydrAMINE (BENADRYL) 5 0 mg/mL injection 12.5 mg 1 11/02/2023 fentaNYL (SUBLIMAZE) preserv ative free syringe 25 mcg 1 11/02/2023 hydrALAZINE (APRESOLINE) injection 5 mg 1 0 11/02/2023 labetaloL (NORMODYNE,TRANDAT E) injection 5 mg 1 11/02/2023 Lactated Ringer's (LR) infusion 1 4 lidocaine PF (XYLOCAINE) 10 mg/mL (1 %) [...] 11/02/2023 documented in this encounter Care Teams Business Analytics Faculty Member Relationship Specialty Start Date End Date Hema Lauren MD PCP - General Family Medicine 07/26/22 documented as of this encounter
--- OUTSIDE RECORDS SUMMARY | 2024-09-16 02:04 | XMS_ITS | Encounter Summary ---
Author Organization [facility] Address [address] [place] [address] Care Team Providers Care Pipe Stripper Name Role Phone Hema Lauren MD Primary Care Provider [phone] Reason for Visit * Auth/Cert (Routine) Specialty Diagnoses / Procedures Referred By Venita arce Referred To Contact Diagnoses Acute lateral meniscus tear of right knee, initial encounter Acute lateral meniscus tear of right knee, initial encounter [S83.281A] Procedures PA ARTHRS KNE SURG W/MENISCECTOMY MED/LAT W/SHVG PA ARTHROSCOPY KNEE W/MENISCUS RPR MEDIAL/LATERAL RIGHT KNEE ARTHROSCOPIC PARTIAL LATERAL MENISCECTOMY VERSUS REPAIR RIGHT Referral ID Status Reason Start Date Expiration Date Visits Re quested Visits Authorized [id number] 1 1 Encounter Details Date Type Department Care Team (Late st Contact Info) Description 11/02/2023 3:22 PM NUTRITIONALIST Anesthesia Event [facility] [address] [place] [id number] Rosa Rice MD [address] [place] [address] Rafa Rice MD [address] [place] [address] Anesthesia Record Procedure Summary Procedure Name Responsible Anesthesiologist Anesthesia Start Time Anesthesia Stop Time RIGHT KNEE ARTHROSCOPIC LATERAL MENISCUS REPAIR (Right: Knee) Rosa Rice MD 11/02/23 1522 11/02/23 1638 Events Date Time Event Comment 11/02/2023 1348 1409 AN Equip Check 1522 An Start 1525 In Room 1525 An Start Data 1528 An Induction The patient was reevaluated immediately before moderate or deep sedation use and before anesthesia induction. 1530 An LMA 1536 Anesthesia Ready 1547 Proc Start 1624 Incision Start 1628 Airway Removed 1629 an stop data 1631 Proc Fin 1632 Out of Room 1637 Handoff to RN I completed my handoff to the receiving nurse during which we: 1. Patient identified 2. Responsible provider identified 3. Pertinent medical history reviewed 4. Procedure type and surgical course discussed 5. Intraoperative anesthetic management and any significant issues discussed 6. Expectations and concerns for postop period discussed 7. Questions solicited from receiving nurse 8. Patient disposition at the time of handoff: No value filed. 1638 An Stop Meds Name Total midazolam 2 mg/2 mL 2 mg fentaNYL PF 100 mcg lidocaine 2 % 100 mg propofol 200 mg ondansetron PF 4 mg ketorolac 30 mg dexamethasone 4 mg/mL 8 mg ceFAZolin (ANCEF) 2,000 mg/50 mL in dext varghese (premix) 2,000 mg 2,000 mg diphenhydrAMINE 12.5 mg dexmedeTOMIDine 12 mcg Lactated Ringer's (LR) infusion 1,000 mL * Agents Name O2 N2O Air Sevoflurane Inspired Sevoflurane * Blood No blood administrations on file. Lines, Drains, and Airways Type Details Placement Removal Peripheral IV Placement Date: 11/02/23; Placement Time: 1351; Catheter Size: 20 G; Orientation: Right; Location: Forearm; Site Prep: Chlorhexidine; Inserted by: Morenita De La Garza RN; Insertion Attempts: 1; Patient Tolerance: Tolerated well; Removal Date: 11/02/23; Removal Time: 1755 11/02/23 1351 by Morenita De La Garza RN 11/02/23 1755 by Morenita De La Garza, TAYLOR Supraglottic Airway Placement Date: 11/02/23; Placement Time: 1540 (created via procedure documentation); Mask Ventilation: 0; Size: 5; Insertion Attempts: 1; Comments: Gentle placement of Igel LMA orally and without difficulty.; Removal Date: 11/02/23; Removal Time: 1628 11/02/23 1540 by Adry Cade TOOL HONING MACHINE SET UP OPERATOR 11/02/23 1628 by Adry Cade CRNA RETIRED Surgical Site 11/02/23; 1556; Right; Leg; 09/02/24 (Retired LDA, Removed/Completed by [facility] with LDA Utility); 1213 (Retired LDA, Removed/Completed by [facility] with LDA Utility) 11/02/23 1556 by Marie Lipscomb RN 09/02/24 1213 by Discharge Provider, Automatic documented in this encounter Social History Tobacco [...] on file documented as of this encounter OR Notes * Anesthesia Postprocedure Evaluation - Martita Siegel MD - 11/02/2023 5:49 PM NUTRITIONALIST Patient: Bryan Nicole Procedure Summary Date: 11/02/23 Room / Location: [facility]PERATING [facility] 3 / [facility] Anesthesia Start: 152 Anesthesia Stop: 163 Procedures: RIGHT KNEE ARTHROSCOPIC LATERAL MENISCUS REPAIR (Right: Knee) RIGHT (Right: Knee) Diagnosis: Acute lateral meniscus tear of right knee, initial encounter (Acute lateral meniscus tear of right knee, initial encounter [S83.281A]) Providers: Ishaan Lee IV, MD Responsible Provider: Rosa Rice MD Anesthesia Type: general ASA Status: 1 Anesthesia Type: general Last vitals BP 110/70 Pulse 63 Temp 36.5 ??C (97.7 ??F) (Temporal) Resp 19 SpO2 99% Anesthesia Post Evaluation Patient location during evaluation: PACU Pain management: adequate Airway patency: adequate and patent Cardiovascular status: acceptable Respiratory status: acceptable Hydration status: acceptable Comments: Ready for discharge from pacu No notable events documented. ITIONALIST * Anesthesia Procedure Notes - Adry Cade CRNA - 11/02/2023 3:39 PM NUTRITIONALIST Associated Order(s): Airway Airway Patient location: pre-op Urgency: elective Indications for airway management: anesthesia Difficult airway: no Staff: Placed by: TOOL HONING MACHINE SET UP OPERATOR: Adry Cade CRNA Emergent airway documentation: Risks and benefits discussed: yes Consent obtained: yes Consent given by: patient Airway prep: Preoxygenated: yes Patient position: sniffing Mask difficulty assessment: 0 - not attempted Spontaneous ventilation during airway: absent Sedation level during airway: deep Final airway details: Final airway type: supraglottic airway Final supraglottic airway: IGel SGA size: 5 Number of attempts: 1 Additional comments: Gentle placement of Igel LMA orally and without difficulty. ITIONALIST * Anesthesia Preprocedure Evaluation - Rosa Rice MD - 10/26/2023 1:28 PM CST Images from the original note were not included. [facility] Planning Preoperative Evaluation Record Evaluation type/location: [facility] from [facility] Date: 10/26/23 NOTE: This note represents a preoperative evaluation initiated via telephone interview. NO PHYSICALEXAM was performed at the time of initial assessment. A physical exam may be added to this note anddocumented below. Anesthesia Evaluation Bryan Nicole is a 28 y.o. male Procedure(s): RIGHT KNEE ARTHROSCOPIC PARTIAL LATERAL MENISCECTOMY VERSUS REPAIR RIGHT Pre-Op Diagnosis Codes: * Acute lateral meniscus tear of right knee, initial encounter [A84.627I] HISTORY HPI Bryan Nicole is a 28 y.o. male who is being evaluated prior to undergoing right knee arthroscopic partial lateral meniscectomy vs repair for Acute lateral meniscus tear of right knee Past Medical History Information obtained from: patient and chart. Neurological Pertinent negatives: seizures; neuromuscular disease; CVA/stroke and TIA Cardiovascular Pertinent negatives: hypertension ; CAD ; CA ; CABG ; valvular heart disease; atrial fibrillation; pacemaker/ICD; DVT/PE; negative for CHF; drug-eluting stent(s) and bare metal stent(s) Respiratory Pertinent negatives: COPD; sleep apnea (EDYTA); pulmonary hypertension; no O2 use outside the hospital and non-smoker Hepatic / Heme Pertinent negatives: liver disease Gastrointestinal Pertinent negatives: GERD Renal / Pertinent negatives: renal disease and dialysis Endocrine / Other Pertinent negatives: diabetes mellitus; thyroid disease; obesity (BMI >30); cancer history; transplanted organ and infectious disease Functional Capacity Functional capacity: 4-6 METs Comments: Patient reports is able to climb 2 flights of stairs without CP or SOB. Review of Systems Pertinent negatives: productive cough; wheezing; SOB; recent cold/flu; fever; chest pain; palpitations; orthopnea; pedal edema; PND; previous transfusion; easy bruising; bleeding problems; syncope; heartburn and dysphagia PAT Summary and Plans Cardiac risk classification of planned procedure: low cardiac risk. Preoperative assessment status: complete. Additional comments: Bryan Nicole is a 28 y.o. male who is being evaluated prior to undergoing a low cardiac risk surgery. Revised Cardiac Risk Index factors are (none) for a total RCRI of 0 out of 6. Functional capacity is 4-6 METs. NOTE: This note represents a preoperative evaluation initiated via telephone interview. NO PHYSICALEXAM was performed at the time of initial assessment. A physical exam may be added to this note anddocumented below. Obstructive sleep apnea (EDYTA) screening status is STOP-BANG incomplete but suspected to be 0-2 suggesting low risk for EDYTA. Neck circumference pending.. Blood bank needs for day of procedure: No type and screen needed Pending labs/tests include: None Patient instructions were provided via telephone and in writing sent via [employer]. Patient verbalized understanding of DOS instruction. TPAP Complete Preoperative evaluation performed by Deepika Benitez NP on 10/26/23 at 1:29 PM . Patient Active Problem List Diagnosis Date Noted Acute lateral meniscus tear of right knee 10/17/2023 Bucket-handle tear of lateral meniscus of right knee as current injury 10/04/2023 Umbilical hernia without obstruction and without gangrene 06/19/2017 History reviewed. No pertinent past medical history. Past Surgical History: Procedure Laterality Date UMBILICAL HERNIA REPAIR 2018 Allergies Allergen Reactions Pollen Extracts Sneezing Med List Status: Nurse Complete Set By: Aubrey Henley RN at 10/18/2023 4:06 PM Taking? Last Dose Start Date End Date Provider ibuprofen (ADVIL,MOTRIN) 200 mg tab/cap Past Week -- -- Provider, MD Xander No current facility-administered medications for this encounter. Current Outpatient Medications: ibuprofen (ADVIL,MOTRIN) 200 mg tab/cap Social History Tobacco Use Smoking Status Never Smokeless Tobacco Never Alcohol Use: Alcohol Misuse (10/18/2023) AUDIT-C Frequency of Alcohol Consumption: 2-4 times a month Average Number of Drinks: 5 or 6 Frequency of Binge Drinking: Monthly Substance and Sexual Activity Drug Use Never Family History Problem Relation Age of Onset Anesthesia problems Neg Hx There were no vitals filed for this visit. PT: No results found for requested labs within last 30 days. INR: No results found for requested labs within last 30 days. APTT: No results found for requested labs within last 30 days. Hgb A1C: No results found for requested labs within last 30 days. CBC RBC: No results found for requested labs within last 30 days. RDW: No results found for requested labs within last 30 days. MCHC: No results found for requested labs within last 30 days. MCH: No results found for requested labs within last 30 days. MCV: No results found for requested labs within last 30 days. Hct: No results found for requested labs within last 30 days. Hgb: No results found for requested labs within last 30 days. WBC: No results found for requested labs within last 30 days. MPV: No results found for requested labs within last 30 days. Platelets: No results found for requested labs within last 30 days. RDW CV: No results found for requested labs within last 30 days. RDW Sd: No results found for requested labs within last 30 days. BMP Glucose: No results found for requested labs within last 30 days. Calcium: No results found for requested labs within last 30 days. Sodium: No results found for requested labs within last 30 days. Potassium: No results found for requested labs within last 30 days. CO2: No results found for requested labs within last 30 days. Chloride: No results found for requested labs within last 30 days. BUN: No results found for requested labs within last 30 days. Creatinine: No results found for requested labs within last 30 days. Carmen index score: 100 DOS Physical Exam Medical history, medications, and allergies reviewed. Attestation: This PAT evaluation Airway Exam: Mallampati: II Cervical ROM: FROM Cardiovascular Exam: Rate: regular Rhythm: regular Pulmonary Exam: LCTA, bilat Anesthesia Plan ASA 1 My patient is approved for the Anesthesia Controlled Medication protocol when under care of a TOOL HONING MACHINE SET UP OPERATOR Planned anesthesia: General Team communication plan: LMA Informed Consent: Anesthesia plan and risks discussed with patient. Consent and Attending signature: I and/or my designee have discussed the anesthesia plan, benefits, possible alternatives, parental presence at time of induction (if indicated), and clinically relevant risks that may include dental injury, unintentional awareness, and/or other complications. The patient and/or parent/legal guardian understand, and agree to proceed. All questions answered. ITIONALIST ITIONALIST documented in this encounter Plan of Treatment Not on file documented as of this encounter Procedures Procedure Name Priority Date/Time Associated Diagnosis Comments PA AN PROCEDURE PLACEHOLDER Routine 11/02/2023 3:39 PM NUTRITIONALIST PA AN ELECTIVE SUPRAGLOTTIC AIRWAY Routine 11/02/2023 3:39 PM NUTRITIONALIST documented in this encounter Results * PA AN ELECTIVE SUPRAGLOTTIC AIRWAY, PA AN PROCEDURE PLACEHOLDER (11/02/2023 3:39 PM NUTRITIONALIST) Narrative Adry Cade CRNA - 11/02/2023 3:39 PM NUTRITIONALIST Adry Cade CRNA ? 11/02/2023 ??3:40 PM Airway Patient location: pre-op Urgency: elective Indications for airway management: anesthesia Difficult airway: no Staff: Placed by: TOOL HONING MACHINE SET UP OPERATOR: Adry Cade CRNA Emergent airway documentation: Risks and benefits discussed: yes Consent obtained: yes Consent given by: patient Airway prep: Preoxygenated: yes Patient position: sniffing Mask difficulty assessment: 0 - not attempted Spontaneous ventilation during airway: absent Sedation level during airway: deep Final airway details: Final airway type: supraglottic airway Final supraglottic airway: IGel SGA size: 5 Number of attempts: 1 Additional comments: Gentle placement of Igel LMA orally and without difficulty. Rosa Rice MD ANESTHESIA ORDERABLES Fi nal Result documented in this encounter Visit Diagnoses Not on filedocumented in this encounter Administered Medications Inactive Administered Medications - up to 3 most recent administrations Medication Order MAR Action Action Date Dose Rate Site ceFAZolin (ANCEF) 2,000 mg/50 mL in dextrose (premix) 2,000 mg 2,000 mg, intravenous, at 100 mL/hr, Administer over 30 Minutes, Once, On Sun11/02/23 at 1400, For 1 dose, Pre-Op, Administer within 60 minutes of incision. Duplex bag - activate before hanging., Indications: Prophylaxis, SurgicalIndications:Prophylaxis, Surgical Given 11/02/2023 3:33 PM NUTRITIONALIST 2,000 mg dexAMETHasone (DECADRON) 4 mg/mL injection intravenous, Administer over 2 Minutes, As needed, Starting on Sun11/02/23 at 1535, Anesthesia Intra-op Given 11/02/2023 3:35 PM NUTRITIONALIST 8 mg dexmedeTOMIDine (PRECEDEX) injection intravenous, As needed, Starting on Sun11/02/23 at 1538, Anesthesia Intra-op Given 11/02/2023 3:38 PM NUTRITIONALIST 12 mcg diphenhydrAMINE (BENADRYL) 50 mg/mL injection intravenous, Administer over 2 Minutes, As needed, Starting on Sun11/02/23 at 1535, Anesthesia Intra-op Given 11/02/2023 3:35 PM NUTRITIONALIST 12.5 mg fentaNYL (SUBLIMAZE) preservative free injection intravenous, As needed, Starting on Sun11/02/23 at 1528, Anesthesia Intra-op Given 11/02/2023 3:58 PM NUTRITIONALIST 25 mcg Given 11/02/2023 3:47 PM NUTRITIONALIST 25 mcg Given 11/02/2023 3:28 PM NUTRITIONALIST 50 mcg ketorolac (TORADOL) 30 mg/mL (1 mL) injection intravenous, As needed, Starting on Sun11/02/23 at 1618, Anesthesia Intra-op Given 11/02/2023 4:18 PM NUTRITIONALIST 30 mg Lactated Ringer's (LR) infusion 30 mL/hr, intravenous, Continuous, Starting on Sun11/02/23 at 1400, Pre-Op, Use a 500 ml bag for End Stage Renal Disease Patients New Bag 11/02/2023 4:26 PM NUTRITIONALIST Rate/Dose Verify 11/02/2023 3:22 PM NUTRITIONALIST 30 mL/h r New Bag 11/02/2023 1:51 PM NUTRITIONALIST 30 mL/hr 30 mL/hr lidocaine (XYLOCAINE) 20 mg/mL (2 %) injection intravenous, As needed, Starting on Sun11/02/23 at 1528, Anesthesia Intra-op, Indications: Administration of Local AnesthesiaIndications:Administration of Local Anesthesia Given 11/02/2023 3:28 PM NUTRITIONALIST 100 mg midazolam (VERSED) 1 mg/mL injection intravenous, As needed, Starting on Sun11/02/23 at 1522, Anesthesia Intra-op Given 11/02/2023 3:22 PM NUTRITIONALIST 2 mg ondansetron (ZOFRAN) injection intravenous, Administer over 2 Minutes, As needed, Starting on Sun11/02/23 at 1618, Anesthesia Intra-op Given 11/02/2023 4:18 PM NUTRITIONALIST 4 mg propofoL (DIPRIVAN) 10 mg/mL IV intravenous, As needed, Starting on Sun11/02/23 at 1528, Anesthesia Intra-op New Bag 11/02/2023 3:28 PM NUTRITIONALIST 200 mg documented in this encounter Care Teams Pipe Stripper Relationship Specialty Start Date End Date Hema Lauren MD PCP - General Family Medicine 07/26/22 documented as of this encounter
--- OUTSIDE RECORDS SUMMARY | 2024-09-16 02:04 | XMS_ITS | Encounter Summary ---
Author Organization [facility] Address [address] [place] [address] Phone Care Team Providers Care Financial Services Specialist Name Role Phone Hema Lauren MD Primary Care Provider [phone] Reason for Visit * Reason Comments Pain Encounter Details Date Type Department Care Team (Late st Contact Info) Description 10/04/2023 4:00 PM TOURIST INFORMATION OFFICER Office Visit [facility] Orthopaedic Surgery [address] [place] [address] [place] [address] [address] [place] [address] Bucket-handle tear of lateral meniscus of right knee as current injury, initial encounter (Primary Dx) Social History Tobacco Use Types [...] - Inhaled Oxygen Concentration - - Weight 90.7 kg (200 lb) 10/04/2023 4:14 PM TOURIST INFORMATION OFFICER Height 182.9 cm (6') 10/04/2023 4:14 PM TOURIST INFORMATION OFFICER Body Mass Index 27.12 10/04/2023 4:14 PM TOURIST INFORMATION OFFICER documented in this encounter Progress Notes * Ishaan Lee IV, MD - 10/04/2023 4:00 PM CST Images from the original note were not included. CHIEF COMPLAINT Right knee pain and mechanical symptoms for a year HISTORY Bryan is a pleasant 28-year-old gentleman who comes in with a year of intermittent right knee painand locking. He had his most severe episode 3 weeks ago and was seen in the injury clinic. An MRI was obtained which showed a displaced bucket-handle lateral meniscus tear. He feels like it has popped back into place and so the knee is now feeling better today but this has happened multiple times over the last year with increasingly severe episodes. When the knee is caught in the joint he has severe sharp pain that limits his ability to walk let alone do more aggressive activity. PAST MEDICAL HISTORY He has no past medical history on file. PAST SURGICAL HISTORY He has no past surgical history on file. INITIAL REVIEW OF MEDICATIONS He has a current medication list which includes the following prescription(s): acetaminophen and ibuprofen. DRUG ALLERGIES He is allergic to pollen extracts. SOCIAL HISTORY He reports that he has never smoked. He does not have any smokeless tobacco history on file. No alcohol history on file. FAMILY HISTORY His family history is not on file. REVIEW OF SYSTEMS Review of symptoms were filled out by the patient on the enclosed intake form, which was reviewed and signed by me. PHYSICAL EXAMINATION The patient is a pleasant male in no acute distress. Height: 6 ft, Weight: 195 lb. Alert and oriented x3. Respirations are regular and without distress. Hearing intact to the spoken word. Ambulates with a normal gait. Right knee - No pain with squat test, no pain with Thessaly. Left knee - No pain with squat test, no pain with Thessaly. Right knee - Skin is intact. No incisions. No erythema, edema, ecchymosis or effusion. Left knee - Skin is intact. No incisions. No erythema, edema, ecchymosis or effusion. Right knee - lateral joint line tenderness Left knee - No joint line or other tenderness. Right knee -0 to 130 degrees of flexion. No crepitus. No pain with hyperflexion or hyperextension. Left knee - 0 to 130 degrees of flexion. No crepitus. No pain with hyperflexion or hyperextension. Right knee - pain with flexion compression. Left knee - No pain with flexion compression. Right knee - 1A Felisa, 1A anterior drawer, 1A posterior drawer. Negative pivot shift. Stable to varus and valgus stress at 0 and 30 degrees of flexion. Left knee - 1A Felisa, 1A anterior drawer, 1A posterior drawer. Negative pivot shift. Stable to varus and valgus stress at 0 and 30 degrees of flexion. Negative Dial test bilaterally. Right lower extremity - Intact light touch over the lateral thigh, medial and lateral leg, dorsum of the foot, including first web space, and plantar aspect of the foot. 5/5 tib ant, EHL, and gastrocsoleus strength bilaterally. Palpable posterior tib pulse with regular rate and rhythm. Left lower extremity - Intact light touch over the lateral thigh, medial and lateral leg, dorsum ofthe foot, including first web space, and plantar aspect of the foot. 5/5 tib ant, EHL, and gastrocsoleus strength bilaterally. Palpable posterior tib pulse with regular rate and rhythm. REVIEW OF X-RAYS/STUDIES I independently reviewed three plain films of the right knee, including bilateral Merchant and Reyes views, taken September 12, 2023 which show no significant degenerative change or fracture. I independently reviewed the MRI of his right knee obtained on September 15, 2023 which shows a displaced flipped bucket-handle lateral meniscus tear. Small effusion. No other obvious pathology. ASSESSMENT Right knee bucket-handle lateral meniscus tear TREATMENT/PLAN Since he has been having repeat episodes of knee pain and locking for over a year with an unstable bucket-handle lateral meniscus tear, I explained that I would recommend an arthroscopic surgery of the right knee at this time as the appropriate next step in the management of his knee. I explained that I would recommend repairing the meniscus tear if appropriate. I explained that this depends on the pattern and location of the tear. If the pattern and location are consistent with agood prospect for healing, I would repair the tear. If the likelihood of healing was low, I would recommend debriding and removing the unstable portion of the tear rather than repairing it. I explained what will be involved with the surgery and recovery. I explained it will be an outpatient procedure. The patient will come and go home the same day. If I repair the tear, I place the kneein a hinged knee brace locked in extension after surgery. The patient can start to put weight on the leg in the brace on the third day after surgery and wean off of crutches as tolerated but has to ke ep the knee in the brace locked straight. I recommend a few physical therapy visits during the first couple of weeks after surgery. I will see the patient back about two weeks after surgery, check the wounds, and review the surgical pictures. The patient will keep the knee locked out in the brace except for physical therapy exercises and when sleeping. At 6 weeks after surgery, I see the patient back in the office to check progress and usually adjust the brace to allow 0-90 degrees of flexion for the next 6 weeks. The patient can typically come out of the brace at 12 weeks. The patient will usually need about 6 months of therapy and rehab to optimize functional outcome. I discussed the risks and benefits of the surgery, including but not limited to the risk of neurovascular injury, the risk of anesthesia, the risk of DVT/PE, the risk of infection, the risk of knee stiffness, the risk for lack of healing or re-injury of the meniscal tear requiring another surgery and the increased riskof osteoarthritis in the long run depending on the indicated treatment and success of healing. If Idebride the tear, I explained the recovery is much shorter but less ideal for the knee in the long run. The patient appears to understand the injury, treatment alternatives, indications for surgery, risks and benefits and what is involved in the recovery and wishes to proceed. I explained that while the surgery is not urgent, the tear may be less amenable to repair over time for a number of reasons. We can schedule surgery at their convenience. The patient had all questions answered and appearscomfortable with this plan going forward. Ishaan Lee MD Professor Sports Medicine [facility] Orthopedics Dictated using MModal Fluency Direct. Outside Sales Account Executive variations may occur. IST INFORMATION OFFICER documented in this encounter Plan of Treatment Not on file documented as of this encounter Visit Diagnoses Diagnosis Bucket-handle tear of lateral meniscus of right knee as current injury, initial encounter- Primary documented in this encounter Care Teams Financial Services Specialist Relationship Specialty Start Date End Date Hema Lauren MD PCP - General Family Medicine 07/26/22 documented as of this encounter
--- OUTSIDE RECORDS SUMMARY | 2024-09-16 02:04 | XMS_ITS | Encounter Summary ---
Author Organization [facility] Address [address] [place] [address] Phone Care Team Providers Care Tool Designer Apprentice Name Role Phone Hema Lauren MD Primary Care Provider [phone] Reason for Referral * Diagnostic Imaging (Routine) - Closed Specialty Diagnoses / Procedures Referred By Venita arce Referred To Contact Diagnoses Acute pain of right wrist Procedures XR Wrist Right 3 [place] [address] [place] [address] Phone: tel: fax: [facility] Orthopedic Center Referral ID Status Reason Start Date Expiration Date Visits Re quested Visits Authorized [id number] Closed 09/18/2022 10/18/2023 1 1 R BATTER MIXER Reason for Visit * Reason Comments Pain Encounter Details Date Type Department Care Team (Late st Contact Info) Description 09/18/2022 4:15 PM WAFER BATTER MIXER Office Visit [facility] Orthopedic [place] ([facility]) - [facility] Orthopedic Injury Clinic [address] [place] [address] [place] [address] [place] [address] Contusion of right wrist, initial encounter (Primary Dx) Social History Tobacco [...] - - Weight 88.5 kg (195 lb) 09/18/2022 4:24 PM WAFER BATTER MIXER Height 182.9 cm (6') 09/18/2022 4:24 PM WAFER BATTER MIXER Body Mass Index 26.45 09/18/2022 4:24 PM WAFER BATTER MIXER documented in this encounter Patient Instructions * Patient Instructions* Clarisse Stephens PA - 09/18/2022 4:15 PM WAFER BATTER MIXER Images from the original note were not included. Bryan Nicole 1995 1. Contusion of right wrist, initial encounter RECOMMENDATIONS: Wrist rehab exercises given. Work on range of motion and stretching. Add strengthening when comfortable. Exercises daily. Avoid heavy lifting until pain-free. Aleve 2 tablets twice daily with food x5 days. Discontinue if GI side effects occur. In a week if improving, may resume activities as tolerated. If in a week symptoms not improving, continue with consistent pain, contact office to discuss further treatment. The recommendations you received in the Orthopedic Acute Injury Clinic was an initiation of care for your urgent problem. It is important that you follow the treatment plan as outlined with you at your visit. If your symptoms should worsen, you can reach your Provider through the office at during regular business hours M-F from 8:00 a.m. to 4:30 p.m. After 4:30 p.m. or on weekends, please call the Physician/Exchange at . If your symptoms worsen and you are unable to reach anyone at either of the numbers provided, you should seek further medical attention in the ER or with your primary care provider. Clarisse Stephens PA-C [facility] Department of Orthopaedic Surgery Working in collaborative practice with Lorenzo Ramirez M.D. R BATTER MIXER documented in this encounter Progress Notes * Clarisse Stephens PA - 09/18/2022 4:15 PM CST Images from the original note were not included. [facility] ORTHOPEDIC INJURY CLINIC CHIEF COMPLAINT Right hand/wrist injury 1 month ago REFERRING PROVIDER Self Referral HISTORY OF PRESENT ILLNESS Bryan Nicole is a 27 y.o. who presents to the orthopedic injury clinic with the complaint of righthand/wrist injury 1 month ago when he took a soccer ball to the wrist. He is had mild pain persistent in this wrist with certain motions. Does not limit him from activity however with weightlifting or repetitive activity he will notice symptoms. Did not have any swelling or bruising at the time of injury. Due to persistent pain here in the office today. He is right- hand dominant. PAST MEDICAL HISTORY He has no past medical history on file. PAST SURGICAL HISTORY He has no past surgical history on file. INITIAL REVIEW OF MEDICATIONS Medication list reviewed. He has a current medication list which includes the following prescription(s): acetaminophen and ibuprofen. ALLERGIES He is allergic to pollen extracts. SOCIAL HISTORY He reports that he has never smoked. He does not have any smokeless tobacco history on file. No alcohol history on file. REVIEW OF SYSTEMS Constitutional: No recent fever, chills, unexplained illnesses or weight loss PHYSICAL EXAMINATION CONSTITUTIONAL/GENERAL: Well-appearing, in no apparent distress. Height: 182.9 cm (6') Weight: 88.5kg (195 lb) PSYCHIATRIC: Alert, cooperative, appropriate mood and affect SKIN: Skin intact. No swelling or bruising. No redness or warmth. MUSCULOSKELETAL: Mild tenderness in the anatomical snuffbox. Mild tenderness through the 1st dorsalcompartment. Axial loading of the thumb across the scaphoid does not increase pain. Negative Uche's exam. Deliver Driver, interosseous, EPL and FPL intact NEUROLOGICAL: Sensation is intact to light touch to the affected extremity VASCULAR: Brisk capillary refill is intact distally to the affect extremity REVIEW OF IMAGING/STUDIES X-rays four view right wrist are taken at office. I have personally interpreted and reviewed the x-rays with the patient at the visit. No evidence of healing fracture is appreciated. Normal alignment. IMPRESSION/DIAGNOSIS Right wrist contusion TREATMENT/PLAN The physical exam findings, x-rays and impression are reviewed. Based on the findings, signs and symptoms are consistent with the above impression. I have discussed treatment options with patient/parent. Recommendations are: Think his symptoms continued to persist due to repetitive activity with weight training and sports.Recommend period of rest. We will start on wrist rehab exercises working on range of motion stretching. Add strengthening comfortable. Avoid heavy lifting until pain-free. Will try 5 days' worth of Aleve. Dosing, side effects and risks reviewed. In a week if improving, may resume activities as tolerated. If persistent symptoms and continue with consistent pain, patient to contact office to discuss further treatment plan. Questions are answered. Patient verbalizes understanding and agrees with above treatment plan. Clarisse Stephens PA-C [facility] Department of Orthopaedic Surgery Working in collaboration with Lorenzo Ramirez M.D. Portions of this note were dictated using Legend Silicon Direct speech recognition software. Please excuse any football pad repairer errors. R BATTER MIXER documented in this encounter Plan of Treatment Not on file documented as of this encounter Procedures Procedure Name Priority Date/Time Associated Diagnosis Comments XR WRIST RIGHT 3 OR MORE VIEWS Schedule Routine, Read Routine (OP Routine) 09/18/2022 4:36 PM WAFER BATTER MIXER Contusion of right wrist, initial encounter documented in this encounter Results * XR Wrist Right 3 or More Views (09/18/2022 4:36 PM WAFER BATTER MIXER) Anatomical Region Laterality Modality Upper Extremities, Wrist Right Compute d Radiography 09/18/2022 4:39 PM WAFER BATTER MIXER Impressions 09/18/2022 4:39 PM WAFER BATTER MIXER 1. ??Normal radiographic examination of the right wrist. Electronically signed by: Cl Hernandez M.D. Narrative 09/18/2022 4:39 PM WAFER BATTER MIXER EXAM: 1. ??XR WRIST RIGHT 3 OR MORE VIEWS HISTORY: Acute right wrist pain COMPARISON: None FINDINGS: 4 radiographs of the right wrist are submitted for interpretation. No acute fracture. ??Alignment is normal. ??Joint spaces are normal. Procedure Note Cl Hernandez MD - 09/18/2022 EXAM: 1. XR WRIST RIGHT 3 OR MORE VIEWS HISTORY: Acute right wrist pain COMPARISON: None FINDINGS: 4 radiographs of the right wrist are submitted for interpretation. No acute fracture. Alignment is normal. Joint spaces are normal. IMPRESSION: 1. Normal radiographic examination of the right wrist. Electronically signed by: Cl Hernandez M.D. Clarisse PERRY IMG XR PROCEDURES Final Res ult documented in this encounter Visit Diagnoses Diagnosis Contusion of right wrist, initial encounter- Primary documented in this encounter Historical Medications * This list may reflect changes made after this encounter. ibuprofen (ADVIL,MOTRIN) 200 mg tab/cap Take 2 tablet/capsul e (400 mg total) by mouth every 6 (six) hours as needed for pain acetaminophen (TYLENOL) 325 mg tablet Take by mouth 10/18/2023 added in this encounter Care Teams Tool Designer Apprentice Relationship Specialty Start Date End Date Hema Lauren MD PCP - General Family Medicine 07/26/22 documented as of this encounter
--- OUTSIDE RECORDS SUMMARY | 2024-09-16 02:04 | XMS_ITS | Clinical Summary ---
Author Organization [facility] Address [address] [place] [address] Care Team Providers Care Neuropsychology Division Chief Name Role Phone Hema Lauren MD Primary Care Provider + [phone] Allergies Active Allergy Reactions Criticality Noted Date [...] hernia without obstruction and without gangrene 06/19/2017 Surgical History Surgery Date Site/Laterality Comments UMBILICAL HERNIA REPAIR 10/01/2017 - 09/30/2018 Family History Medical History Relation Name Comments Anesthesia problems Neg Hx Social History Tobacco Use Types Packs/Day Years [...] on file Sexual Orientation Not on file Obstetrics History Last Filed Vital Signs Vital Sign Reading Time Taken Comments Blood Pressure 111/66 11/02/2023 5:45 PM DONOR RECRUITER Pulse 63 11/02/2023 5:55 PM DONOR RECRUITER Temperature 36.5 ??C (97.7 ??F) 11/02/2023 5:55 PM CS T Respiratory Rate 15 11/02/2023 5:55 PM DONOR RECRUITER Oxygen Saturation 98% 11/02/2023 5:55 PM DONOR RECRUITER Inhaled Oxygen Concentration - - Weight 90 kg (198 lb 6.4 oz) 11/02/2023 1:40 PM DONOR RECRUITER Height 182.9 cm (6') 11/02/2023 1:40 PM DONOR RECRUITER Body Mass Index 26.91 11/02/2023 1:40 PM DONOR RECRUITER Plan of Treatment Health Maintenance Due Date Last Done Comments Depression Screening 1995 Hepatitis C Screening 1995 Varicella Vaccines (1 of 2 - 13+ 2-dose series) 2008 Regular Well Visit/Exam 18-64 2013 DTaP/Tdap/Td Vaccine (7 - Td or Tdap) 04/20/2020 04/20/2010, 04/28/2009, 08/19/1996, Additional history exists Influenza Vaccine (#1) 2024 HPV Vaccines Aged Out No longer eligi ble based on patient's age to complete this topic Pneumococcal vaccine <65 Aged Out No longer eligible based on patient's age to complete this topic Medical Devices Implanted Type Area Healthcare Consulting Manager Device Identifier Shelf Expiration Date Model / Serial / Lot [employer] [place] Meniscal Repair Curved 2 0 Fiberwire Fiberstitch Ar-4570 - [id number] Implanted:Qty: 1 on 11/02/2023 by Ishaan Lee IV, MD at [facility] [place] Right: Knee [employer] 06/30/2027 AR-4570 / / [id number] [employer] [place] Meniscal Repair Curved 2 0 Fiberwire Fiberstitch Ar-4570 - [id number] Implanted:Qty: 1 on 11/02/2023 by Ishaan Lee IV, MD at [facility] [place] Right: Knee [employer] 06/30/2027 AR-4570 / / [id number] [employer] [place] Meniscal Repair Curved 2 0 Fiberwire Fiberstitch Ar-4570 - [id number] Implanted:Qty: 1 on 11/02/2023 by Ishaan Lee IV, MD at [facility] Right: Knee [employer] 05/31/2027 AR-4570 / / [id number] [employer] [place] Meniscal Repair Curved 2 0 Fiberwire Fiberstitch Ar-4570 - [id number] Implanted:Qty: 1 on 11/02/2023 by Ishaan Lee IV, MD at [facility] [place] Right: Knee [employer] 08/30/2027 AR-4570 / / [id number] Insurance [employer] CHOICE [employer] ACCESS CHOICE Advance Directives For more information, please contact: [phone] * Full Code (Latest Code Status on File) Date Activated Date Inactivated Comments 11/02/2023 4:39 PM 11/02/2023 10:20 PM Care Teams Neuropsychology Division Chief Relationship Specialty Start Date End Date Hema Lauren MD PCP - General Family Medicine 07/26/22
--- OUTSIDE RECORDS SUMMARY | 2024-09-16 02:04 | XMS_ITS | Encounter Summary ---
Author Organization [facility] Address [address] [place] [address] Phone Care Team Providers Care Plastics Nurse Name Role Phone Hema Lauren MD Primary Care Provider [phone] Reason for Visit * Reason Comments Follow-up Encounter Details Date Type Department Care Team (Late st Contact Info) Description 04/14/2024 2:30 PM CDT Office Visit [facility] Orthopaedic Surgery [address] [place] [address] [place] [address] [place] [address] [place] [address] Bucket-handle tear of lateral meniscus of right knee as current injury, subsequent encounter (Primary Dx); S/P lateral meniscus repair of left knee Social History Tobacco Use Types Packs/Day [...] Notes * Ishaan Lee IV, MD - 04/14/2024 2:30 PM CDT Images from the original note were not included. Patient Name: Bryan Nicole INTERIM HISTORY: Follow up from Right Knee Arthroscopic Lateral Meniscus Repair - Right on 11/02/2023 The patient has recently had pain: None to every couple of days The current level of pain is: 0 The worst level of pain in the last few days is: 3 Wound complaints: None He reports he is making good progress with physical therapy and feels like he is essentially a fullrecovery PHYSICAL EXAM: Incision: well healed Erythema: No Edema: No Effusion: No Ecchymosis: No Discharge: No 0-140 degrees of flexion Good quad bulk IMPRESSION/DIAGNOSIS: Doing well with much less swelling 5.5 months after surgery. PLAN: He can wrap up physical therapy and ease back into activities as tolerated Follow up at this point is as needed He had all his questions answered and appears pleased with the outcome of his treatment Return to clinic: DON Lee IV, MD documented in this encounter Plan of Treatment Not on file documented as of this encounter Visit Diagnoses Diagnosis Bucket-handle tear of lateral meniscus of right knee as current injury, subsequent encounter- Primary S/P lateral meniscus repair of left knee documented in this encounter Care Teams Plastics Nurse Relationship Specialty Start Date End Date Hema Lauren MD PCP - General Family Medicine 07/26/22 documented as of this encounter
--- OUTSIDE RECORDS SUMMARY | 2024-09-16 02:04 | XMS_ITS | Clinical Summary ---
Author Organization [facility] Address [address] [place] [address] Phone Care Team Providers Care Associate Loan Officer Name Role Phone Hema Lauren MD Primary Care Provider Brooklyn Cowart MD Unavailable [phone] Allergies No known active allergies Medications IBUPROFEN PO Take by mouth. Active Acetaminophen (TYLENOL PO) Take by mouth. Active Active Problems Problem Noted Date Diagnosed Date Status post hernia repair 07/31/2017 Umbilical hernia without obstruction and without gangrene 06/19/2017 Immunizations Immunization Administration Dates Next Due DTAP VACCINE 04/20/2010, 0,08/19/1996,08/19,1995 DTP-Hib 1995, 6,1995,07/24,1995,1995 HIB Vaccine (PRP-T) 1995,1995,1994 Hepatitis B Vaccine, Pediatric/adolescent 1995,1995,1995,04/17,1995,1995 Hib Vaccine,unspecified Formulation 08/19/1996,1 1995 MMR Vaccine 02/19/2000, 0,06/03/1996,06/03 Meningococcal MCV4O 07/20/2017 OPV 02/14/2000, 6,1995,07/24,1995,1995,1995 TDAP Vaccine 04/28/2009,04/28/2009 Family History Medical History Relation Name Comments No Known Problems Father No Known Problems Mother Relation Name Status Comments Father Mother Social History Tobacco Use Types Packs/Day Years Used Date Smoking Tobacco: Never Smokeless Tobacco: Never Alcohol Use Standard Drinks/Week Comments Yes 12 (1 standard drink = 0.6 oz pu re alcohol) Sex and Gender Information Value Date Recorded Sex Assigned at Not on file Legal Sex Male 12:14 AM CDT Gender Identity Not on file Sexual Orientation Not on file Last Filed Vital Signs Vital Sign Reading Time Taken Comments Blood Pressure 112/64 06/29/2017 2:31 PM CDT Pulse 80 06/29/2017 2:31 PM CDT Temperature 36.7 ??C (98 ??F) 06/29/2017 2:31 PM CDT Respiratory Rate 16 06/29/2017 2:31 PM CDT Oxygen Saturation 100% 06/29/2017 2:31 PM CDT Inhaled Oxygen Concentration - - Weight 85.7 kg (189 lb) 11/06/2017 8:19 AM CLOTH MEASURER Height 182.9 cm (6') 11/06/2017 8:19 AM CLOTH MEASURER Body Mass Index 25.63 11/06/2017 8:19 AM CLOTH MEASURER Plan of Treatment Health Maintenance Due Date Last Done Comments Hepatitis C Virus (HCV) Screening 1995 DTaP/Tdap/Td Immunization (9 - Td or Tdap) 04/20/2020 04/20/2010, 04/20/2010, 04/28/2009, Additional history exists SARS-COV-2 Immunization ( season) 2023 04/07/2021, 03/14/2021 Influenza Immunization (#1) 2024 Hepatitis B Immunization Completed 996, 1995, 1995, Additional history exists Meningococcal Immunization (ACWY) Aged Out 07/20/2017 No longer eligible based on patient's age to complete this topic Pneumococcal Immunization Combined Aged Out No longer eligible based on patient's age to complete this topic Rotavirus Immunization Aged Out No lo nger eligible based on patient's age to complete this topic Medical Devices Implanted Type Area Scientific Illustrator Device Identifier Shelf Expiration Date Model / Serial / Lot Symbotex Composite Mesh Implanted:Qty: 1 on 06/29/2017 by Brooklyn Cowart MD at [facility] N/A: Umbilical COVIDIEN 12/29/2021 SYM9 / [id number] / [id number] Insurance [facility] Care Teams Associate Loan Officer Relationship Specialty Start Date End Date Hema Lauren MD [address] [address] PCP - General Family Medicine 06/14/17 Brooklyn Cowart MD [address] [place] [address] DR HARDEN [address] [place] [address] Consulting Physician General Surgery 06/19/17
--- OUTSIDE RECORDS SUMMARY | 2024-09-16 02:04 | XMS_ITS | Encounter Summary ---
Author Organization [facility] Address [address] [place] [address] Phone Care Team Providers Care Zinc Etcher Name Role Phone Hema Lauren MD Primary Care Provider [phone] Reason for Referral * Consultation (Routine) - Pending Review Specialty Diagnoses / Procedures Referred By Contac t Referred To Contact Physical Therapy Diagnoses S/P lateral [place] [address] [place] [address] Phone: tel: fax: External Order Referral ID Status Reason Start Date Expiration Date Visits Requested Visits Authorized [id number] Pending Review Evaluate and Treat 01/14/2024 02/12/2025 24 24 Question Answer PTRFR PT Evaluate and Treat Therapy options discussed with patient? Yes Location provided for therapy services is: Patient requested/Patient preferred Please select the performing region: External Order [171] # of visits: 24 Comments Today: 01/14/24 Name: Bryan Nicole : 1995 Last Surgery Date: 11/02/2023 Diagnosis: s/p right Knee Arthroscopic Meniscal Repair lateral Visits: 12 Frequency: 2x/week Duration: 6 weeks -Evaluate and Treat -Home Program ARTHROSCOPIC MENISCAL REPAIR PHYSICAL THERAPY PRESCRIPTION Instructions/Modifications: Phase: 3 for 2 weeks, progress to phase 4 after 2 weeks to begin weaning out of brace PHASE I: WEEK 0-2 WBAT brace locked [...] for physical therapy services contact Pre-Certification at [phone]. If pre-certification/ prior authorization is required by [...] Compensation patients: You must call your case management coordinator to be referred to physical therapy. Ishaan Lee IV, MD Reason for Visit * Reason Comments Post-op Encounter Details Date Type Department Care Team (Late st Contact Info) Description 01/14/2024 3:50 PM CDT Office Visit [facility] Orthopaedic Surgery [address] [facility] 12th [place] [address] [place] [address] [place] [address] [place] [address] S/P lateral meniscus repair of right knee (Primary Dx) Social History Tobacco Use [...] Notes * Ishaan Lee IV, MD - 01/14/2024 3:50 PM CDT Images from the original note were not included. Patient Name: Bryan Nicole Date: 01/14/2024 INTERIM HISTORY: Follow up from Right Knee Arthroscopic Lateral Meniscus Repair - Right on 11/02/2023 The patient has recently had pain: every couple of days The current level of pain is: 3 The worst level of pain in the last few days is: 4 Wound complaints: None He has been icing and doing well but he had a little more discomfort after moving recently. PHYSICAL EXAM: Incision: well healed Erythema: No Edema: No Effusion: Trace Ecchymosis: No Discharge: No 0-130 degrees of flexion IMPRESSION/DIAGNOSIS: Doing well with much less swelling 10 weeks after surgery. PLAN: I encouraged him to keep icing but the swelling looks much better. Continue Physical Therapy with the brace allowing 0-90 degrees of flexion for another 2 weeks and then wean out of the brace Reviewed precautions Return to clinic: 6 weeks Ishaan Lee IV, MD documented in this encounter Plan of Treatment Scheduled Referrals Name Type Priority Associated Diagnoses Order Schedule Ambulatory referral order to Physical Therapy - Outpatient Referral Routine S/P lateral meniscus repair of right knee Expected: 01/28/2024 (Approximate), Expires: 01/13/2025 documented as of this encounter Visit Diagnoses Diagnosis S/P lateral meniscus repair of right knee- Primary documented in this encounter Care Teams Zinc Etcher Relationship Specialty Start Date End Date Hema Lauren MD PCP - General Family Medicine 07/26/22 documented as of this encounter
--- OUTSIDE RECORDS SUMMARY | 2024-09-16 02:04 | XMS_ITS | Encounter Summary ---
Author Organization [facility] Address [address] [place] [address] Care Team Providers Care Operations Management Professionals Name Role Phone Hema Lauren MD Primary Care Provider [phone] Reason for Visit * Diagnostic Imaging (Routine) - Closed Specialty Diagnoses / Procedures Referred By Contac t Referred To Contact Diagnoses Acute pain of right wrist Procedures XR Wrist Right 3 [place] [address] [place] [address] Phone: tel: fax: [facility] Referral ID Status Reason Start Date Expiration Date Visits Re quested Visits Authorized [id number] Closed 09/18/2022 10/18/2023 1 1 Encounter Details Date Type Department Care Team (Latest Contact Info) Description 09/18/2022 4:32 PM RESOURCE CONSERVATION MANAGER - 09/18/2022 11:59 PM RESOURCE CONSERVATION MANAGER Hospital Encounter [facility] [address] [place] [address] Discharge Disposition: Discharge to home or self [...] Read Routine (OP Routine) 09/18/2022 4:36 PM RESOURCE CONSERVATION MANAGER Contusion of right wrist, initial encounter documented in this encounter Results * XR Wrist Right 3 or More Views (09/18/2022 4:36 PM RESOURCE CONSERVATION MANAGER) Anatomical Region Laterality Modality Upper Extremities, Wrist Right Compute d Radiography 09/18/2022 4:39 PM RESOURCE CONSERVATION MANAGER Impressions 09/18/2022 4:39 PM RESOURCE CONSERVATION MANAGER 1. ??Normal radiographic examination of the right wrist. Electronically signed by: Cl Hernandez M.D. Narrative 09/18/2022 4:39 PM RESOURCE CONSERVATION MANAGER EXAM: 1. ??XR WRIST RIGHT 3 OR [...] ult documented in this encounter Visit Diagnoses Not on filedocumented in this encounter Care Teams Operations Management Professionals Relationship Specialty Start Date End Date Hema Lauren MD PCP - General Family Medicine 07/26/22 documented as of this encounter
--- OUTSIDE RECORDS SUMMARY | 2024-09-16 02:04 | XMS_ITS | Encounter Summary ---
Author Organization [facility] Address [address] [place] [address] Phone Care Team Providers Care Director Safety Name Role Phone Hema Lauren MD Primary Care Provider [phone] Reason for Referral * Consultation (Routine) - Pending Review Specialty Diagnoses / Procedures Referred By Contac t Referred To Contact Physical Therapy Diagnoses S/P lateral [place] [address] [place] [address] Phone: tel: fax: External Order Referral ID Status Reason Start Date Expiration Date Visits Requested Visits Authorized [id number] Pending Review Evaluate and Treat 03/03/2024 04/02/2025 12 12 Question Answer PTRFR PT Evaluate and Treat Therapy options discussed with patient? Yes Location provided for therapy services is: Patient requested/Patient preferred Please select the performing region: External Order [171] # of visits: 12 Comments Today: 03/03/24 Name: Bryan Nicole : 1995 Last Surgery Date: 11/02/2023 Diagnosis: s/p right Knee Arthroscopic Meniscal Repair lateral Visits: 12 Frequency: 2x/week Duration: 6 weeks -Evaluate and Treat -Home Program ARTHROSCOPIC MENISCAL REPAIR PHYSICAL THERAPY PRESCRIPTION Instructions/Modifications: Phase: 5 PHASE I: WEEK 0-2 WBAT brace locked [...] for physical therapy services contact Pre-Certification at [phone]. If pre-certification/ prior authorization is required by [...] Workers' Compensation patients: You must call your employment evaluator/case manager to be referred to physical therapy. Ishaan Lee IV, MD Reason for Visit * Reason Comments Follow-up Encounter Details Date Type Department Care Team (Late st Contact Info) Description 03/03/2024 2:30 PM CDT Office Visit [facility] Orthopaedic Surgery [address] [facility] 12th [place] [address] [place] [address] [place] [address] [place] [address] S/P lateral meniscus repair of right knee (Primary Dx); Acute lateral meniscus tear of right knee, subsequent encounter Social History Tobacco Use Types Packs/Day [...] Notes * Ishaan Lee IV, MD - 03/03/2024 2:30 PM CDT Images from the original note were not included. Patient Name: Bryan Nicole Date: 03/03/2024 INTERIM HISTORY: Follow up from Right Knee Arthroscopic Lateral Meniscus Repair - Right on 11/02/2023 The patient has recently had pain: every couple of days The current level of pain is: 1 The worst level of pain in the last few days is: 4 Wound complaints: None He reports he is making good progress with physical therapy PHYSICAL EXAM: Incision: well healed Erythema: No Edema: No Effusion: No Ecchymosis: No Discharge: No 0-140 degrees of flexion Mild quad atrophy IMPRESSION/DIAGNOSIS: Doing well with much less swelling 4 months after surgery. PLAN: I encouraged him to keep icing Progress Physical Therapy to ease into running Reviewed precautions Return to clinic: 4 weeks Ishaan Lee IV, MD documented in this encounter Plan of Treatment Scheduled Referrals Name Type Priority Associated Diagnoses Order Schedule Ambulatory referral order to Physical Therapy - Outpatient Referral Routine S/P lateral meniscus repair of right knee Expected: 03/17/2024 (Approximate), Expires: 03/03/2025 documented as of this encounter Visit Diagnoses Diagnosis S/P lateral meniscus repair of right knee- Primary Acute lateral meniscus tear of right knee, subsequent encounter documented in this encounter Care Teams Director Safety Relationship Specialty Start Date End Date Hema Lauren MD PCP - General Family Medicine 07/26/22 documented as of this encounter
--- OUTSIDE RECORDS SUMMARY | 2024-09-16 02:04 | XMS_ITS | Encounter Summary ---
Author Organization [facility] Address [address] [place] [address] Phone Care Team Providers Care Fleece Tier Name Role Phone Hema Lauren MD Primary Care Provider [phone] Reason for Referral * Diagnostic Imaging (Routine) - Closed Specialty Diagnoses / Procedures Referred By Contac t Referred To Contact Diagnoses Left shoulder pain, unspecified chronicity Procedures XR Shoulder Left 2+ View Zak Newell MD [address] [place] [address] Phone: tel: fax: [facility] Referral ID Status Reason Start Date Expiration Date Visits Re quested Visits Authorized [id number] Closed 07/26/2022 08/25/2023 1 1 Reason for Visit * Reason Comments Pain Encounter Details Date Type Department Care Team (Late st Contact Info) Description 07/26/2022 4:00 PM CDT Office Visit [facility] [place] [facility] - [facility] [address] [place] [address] Zak Newell MD [address] [place] [address] Left anterior shoulder pain (Primary Dx); Pectoralis muscle strain, sequela Social History Tobacco Use Types Packs/Day Years Used Date Smoking Tobacco: Never Tobacco Cessation:Counseling Given: Not Answered Sex and Gender Information Value Date Recorded [...] - Inhaled Oxygen Concentration - - Weight 86.2 kg (190 lb) 07/26/2022 4:05 PM CDT Height 182.9 cm (6') 07/26/2022 4:05 PM CDT Body Mass Index 25.77 07/26/2022 4:05 PM CDT documented in this encounter Patient Instructions * Patient Instructions* Antonia Loja - 07/26/2022 4:00 PM CDT Images from the original note were not included. Bryan Nicole 1995 Left pectoralis myofascial dysfunction causing anterior shoulder pain. TREATMENT PLAN: We discussed things in detail today. I recommend: Pectoralis stretching on rising and before bed, before and after workouts, sports. Update our office via patient portal or phone call to report progress in 2-3 weeks, and sooner in the interim as needed. Consider physical therapy should symptoms persist. The recommendations you received in the Orthopedic [...] ER or with your primary care provider. Zak Newell MD documented in this encounter Progress Notes * Zak Newell MD - 07/26/2022 4:00 PM CDT [facility] PATIENT VISIT CHIEF COMPLAINT: Chief Complaint Patient presents with Left Shoulder - Pain HISTORY OF PRESENT ILLNESS: Bryan Nicole is a 27 y.o. male who presents to the Orthopedic Injury Clinic today for evaluation of the above-stated chief complaint. He reports shoulder pain present for the last month. He does notidentify a specific event or trauma to edgardo onset but recalls feeling a pop at the shoulder while driving. Pain is anterior, dull in nature mild in severity. Symptoms are aggravated with pressure, bench press, better with rest. Report symptoms are continuous to some extent. Pain does not refer or radiate. He has no significant history of prior similar injury. PAST MEDICAL HISTORY: He has no past medical history on file. PAST SURGICAL HISTORY: He has no past surgical history on file. INITIAL REVIEW OF MEDICATIONS: He currently has no medications in their medication list. DRUG ALLERGIES: He is allergic to pollen extracts. SOCIAL HISTORY: He reports that he has never smoked. He does not have any smokeless tobacco history on file. No alcohol history on file. FAMILY HISTORY: He family history is not on file. PHYSICAL EXAM: On examination today, the patient is awake, alert, and appropriate, in no apparent distress. Breathing is regular and non-labored, hearing is intact to spoken words. Upper extremities are without swelling or edema, and visualized skin is intact. Sensibility light touch subjectively intact in the upper extremities and there are no focal motor deficits affecting the upper extremities. Cervical range of motion is unrestricted without provocation shoulder pain. Active shoulder range of motion is normal. There is mild pain at end range extension/internal rotation. His rotator cuff functionally intact throughout. Rotator cuff impingement signs are negative. Montgomery's is negative. AC joint nontender to palpation. No clavicular scapular spine tenderness to palpation. There is no capsular restriction passive range. Pain of chief complaint localizes to palpation of the mid belly clavicular head pectoralis major territory, further provoked mildly with passive stretch and active resisted loading. REVIEW OF X-RAYS/STUDIES: Shoulder x-rays are ordered and visualized today: Normal alignment, no acute findings. IMPRESSION/DIAGNOSIS: Left pectoralis myofascial dysfunction causing anterior shoulder pain. TREATMENT PLAN: We discussed things in detail today. I recommend: Pectoralis stretching on rising and before bed, before and after workouts, sports. Update our office via patient portal or phone call to report progress in 2-3 weeks, and sooner in the interim as needed. Consider physical therapy should symptoms persist. The rational for all recommendations, as well as relevant risks, are discussed with the patient in detail. The patient expresses understanding, comfort and agreement with the plan, all questions are answered. Orders Placed This Encounter Procedures XR Shoulder Left 2+ View This note was dictated using [employer] software. This note was not read in detail; therefore, variances and inaccuracies may occur. Zak Beard MD Professor Physical Medicine and Rehabilitation [facility] documented in this encounter Plan of Treatment [...] shoulder. Electronically signed by: Quinton Bahena MD us Zak Newell MD IMG XR PROCEDURES Final Re sult documented in this encounter Visit Diagnoses Diagnosis Left anterior shoulder pain- Primary Pectoralis muscle strain, sequela documented in this encounter Care Teams Fleece Tier Relationship Specialty Start Date End Date Hema Lauren MD PCP - General Family Medicine 07/26/22 documented as of this encounter
--- OUTSIDE RECORDS SUMMARY | 2024-09-16 02:04 | XMS_ITS | Encounter Summary ---
Author Organization [facility] Address [address] [place] [address] Phone Care Team Providers Care Ux Ui Designer Name Role Phone Hema Lauren MD Primary Care Provider [phone] Encounter Details Date Type Department Care Team (Late st Contact Info) Description 11/01/[address] [facility] Orthopaedic Surgery [address] [place] [address] [place] [address] [place] [address] Social History Tobacco Use Types [...] encounter Miscellaneous Notes * Telephone Encounter - Ga Cerda - 11/01/2023 5:15 PM CST Patient called to review sx. Reviewed last dictation with patient. He was satisfied with conversation and will arrive to sx center as instructed. DLE PLUMBER documented in this encounter Plan of Treatment Not on file documented as of this encounter Visit Diagnoses Not on filedocumented in this encounter Care Teams Ux Ui Designer Relationship Specialty Start Date End Date Hema Lauren MD PCP - General Family Medicine 07/26/22 documented as of this encounter
--- OUTSIDE RECORDS SUMMARY | 2024-09-16 02:04 | XMS_ITS | Encounter Summary ---
Author Organization [facility] Address [address] [place] [address] Phone Care Team Providers Care Integrated Campaign Manager Name Role Phone Hema Lauren MD Primary Care Provider [phone] Reason for Referral * Durable Medical Equipment (Routine) - Authorized Specialty Diagnoses / Procedures Referred By Contac t Referred To Contact Diagnoses Bucket-handle tear of lateral meniscus of right knee as current injury, subsequent encounter Procedures [place] [address] [place] [address] Phone: tel: fax: [facility] (All Locations) Referral ID Status Reason Start Date Expiration Date V isits Requested Visits Authorized [id number] Authorized 11/05/2023 12/04/2024 1 1 X RAY NURSE Encounter Details Date Type Department Care Team (Late st Contact Info) Description 11/05/2023 Orders Only [facility] Orthopaedic Surgery [address] [facility] [place] [place] [address] Jannie Horn, BS Bucket-handle tear of lateral meniscus of right knee as current injury, subsequent encounter (Primary Dx) Social History Tobacco Use [...] on file documented as of this encounter Plan of Treatment Not on file documented as of this encounter Visit Diagnoses Diagnosis Bucket-handle tear of lateral meniscus of right knee as current injury, subsequent encounter- Primary documented in this encounter Orders General Supply Count Last Ordered Date First Or dered Date MISCELLANEOUS DME 1 11/05/2023 documented in this encounter Care Teams Integrated Campaign Manager Relationship Specialty Start Date End Date Hema Lauren MD PCP - General Family Medicine 07/26/22 documented as of this encounter
--- OUTSIDE RECORDS SUMMARY | 2024-09-16 02:04 | XMS_ITS | Encounter Summary ---
Author Organization [facility] Address [address] [place] [address] Phone Care Team Providers Care Search Coordinator Name Role Phone Hema Lauren MD Primary Care Provider [phone] Encounter Details Date Type Department Care Team (Late st Contact Info) Description 10/30/2023 Telephone [facility] Orthopaedic Surgery [address] [place] [address] [place] [address] [place] [address] Social History Tobacco Use Types [...] Monthly 10/18/2023 Personal Safety Answer Date Recorded Getting School Help Needed Not on file 09/12 Sex and Gender Information Value Date Recorded Sex Assigned at Not on file Legal Sex Male 11:56 PM CDT Gender Identity Not on file Sexual Orientation Not on file documented as of this encounter Ordered Prescriptions Prescription Sig Dispense Quantity Refills Last Filled Start Date End Date meloxicam (MOBIC) 15 mg tablet Take 1 tablet (15 mg total) by mouth daily for 10 days 10 tablet 11/02/2023 documented in this encounter Miscellaneous Notes * Telephone Encounter - Ga Cerda - 10/30/2023 3:58 PM CST Rx for sx ESTIMATOR documented in this encounter Plan of Treatment Not on file documented as of this encounter Visit Diagnoses Not on filedocumented in this encounter Care Teams Search Coordinator Relationship Specialty Start Date End Date Hema Lauren MD PCP - General Family Medicine 07/26/22 documented as of this encounter
--- OUTSIDE RECORDS SUMMARY | 2024-09-16 02:04 | XMS_ITS | Encounter Summary ---
Author Organization [facility] Healthcare Address [address] [place] [address] Care Team Providers Care Senior Planning Manager Name Role Phone Hema Lauren MD Primary Care Provider [phone] Reason for Visit * Diagnostic Imaging (Routine) - Closed Specialty Diagnoses / Procedures Referred By Contac t Referred To Contact Diagnoses Acute pain of right knee Procedures XR Knee Right 3 [place] [address] [address] [facility] [address] [place] [address] Phone: tel: fax: [facility] Referral ID Status Reason Start Date Expiration Date Visits Re quested Visits Authorized [id number] Closed 09/12/2023 10/11/2024 1 1 Encounter Details Date Type Department Care Team (Latest Contact Info) Description 09/12/2023 5:25 PM ELECTRONIC DIE MAKER - 09/12/2023 11:59 PM ELECTRONIC DIE MAKER Hospital Encounter [facility] [address] [facility] [address] Discharge Disposition: Discharge to home or self [...] Read Routine (OP Routine) 09/12/2023 5:36 PM ELECTRONIC DIE MAKER Acute pain of right knee documented in this encounter Results * XR Knee Right 3 View (09/12/2023 5:36 PM ELECTRONIC DIE MAKER) Anatomical Region Laterality Modality Lower Extremities, Knee Right Computed Radiography 09/13/2023 6:13 AM ELECTRONIC DIE MAKER Impressions 09/13/2023 6:13 AM ELECTRONIC DIE MAKER Normal radiographs of the right knee. Electronically signed by: Miah Jacobs M.D. Narrative 09/13/2023 6:13 AM ELECTRONIC DIE MAKER XR KNEE RIGHT 3 VIEWS HISTORY: ??Right [...] signed by: Miah Jacobs M.D. Jacque Shankar HOGSHEAD DUMPER IMG XR PROCEDU RES Final Result documented in this encounter Visit Diagnoses Not on filedocumented in this encounter Care Teams Senior Planning Manager Relationship Specialty Start Date End Date Hema Lauren MD PCP - General Family Medicine 07/26/22 documented as of this encounter
--- OUTSIDE RECORDS SUMMARY | 2024-09-16 02:05 | XMS_ITS | Continuity of Care Document ---
Author Organization [facility] Address [address] [facility] [address] [place] [address] Phone Care Team Providers Care Mounter Name Role Phone Calbow PT, DPT, ATC, Alejandrina Unavailable Unav ailable Procedures Procedure Date Therapeutic Exercise Neuromuscular Re-Ed Therapeutic Exercise Neuromuscular Re-Ed Therapeutic Exercise Neuromuscular Re-Ed Therapeutic Exercise Neuromuscular Re-Ed Therapeutic Exercise Therapeutic Activities PT Evaluation Low Complexity Therapeutic Exercise Free Assessment Advance Directives Directive Yes / No Effective Date File Name No Information Encounters Encounter Description Practice Location Reason(s) For Visit Diagnoses Date Provider Providers Copied on Encounter [facility] [address], [place], [place], [id number], tel:[phone] Normal Pain in right shoulderImpingemen t syndrome of right shoulderOth symptoms and signs involving the musculoskeletal system 2 9 Calbow Alejandrina. . Referring Provider: Access Direct. [facility], [place], [place], [id number], tel:[phone] Normal Pain in right shoulderImpingemen t syndrome of right shoulderOth symptoms and signs involving the musculoskeletal system 0201 9 Calbow Alejandrina. . Referring Provider: Access Direct. Cuca [facility] [address], [place], [place], [id number], tel:[phone] Normal Pain in right shoulderImpingemen t syndrome of right shoulderOth symptoms and signs involving the musculoskeletal system Dec- 9 Calbow Alejandrina. . Referring Provider: Access Direct. [facility] [address], [place], [place], [id number], tel:[phone] Normal Pain in right shoulderImpingemen t syndrome of right shoulderOth symptoms and signs involving the musculoskeletal system 9 Calbow Alejandrina. . Referring Provider: Access Direct. [facility] [address], [place], [place], [id number], [place] tel:[phone] Normal Pain in right shoulderImpingemen t syndrome of right shoulderOth symptoms and signs involving the musculoskeletal system 9 Neeta Storm. [address] [place] [address], [facility], . tel:[phone] Referring Provider: Access Direct. [facility] [address], [place], [place], [id number], [place] tel:[phone] Normal Pain in right shoulderImpingemen t syndrome of right shoulderOth symptoms and signs involving the musculoskeletal system Dec- 9 Calbow Alejandrina. . Referring Provider: Access Direct. [facility] [address], [place], [place], [id number], tel:[phone] Normal No Information 9 Neeta Storm. [address] [place] [address], [facility], . tel:[phone] Referring Provider: Physician Screen. Family History Family Member Type Diagnosis Age At Onset No Information Payers Payer name Insurance type Covered democrat ID Luisa gama(s) [facility] [id number] Social History Type Description Quantity Date Captured Comments Sex Male Smoking Status No Information Gender Identity Male Chief Complaint And Reason For Visit No Information Reason For Referral Reason For Referral No Information History Of Present Illness Encounter Date Complaint History Of Prese nt Illness No Information Functional Status Date Functional Assessmen t No Information Instructions Date Instruction Additional Infor mation No Information Assessments Type Assessment Date No Information Patient Care Teams Name Effective Dates (start - stop) Status Members No Information
--- OUTSIDE RECORDS SUMMARY | 2024-09-16 02:05 | XMS_ITS | Continuity of Care Document ---
Author Organization [employer] [place] Address [address] [facility] [address] [place] [address] Phone Care Team Providers Care Manager Services Name Role Phone Siena PT, DPT, Sierra Unavailable Unavaila ble Procedures Procedure Date PT Re-evaluation Therapeutic Activities Neuromuscular Re-Ed Therapeutic Exercise Therapeutic Activities Therapeutic Exercise Neuromuscular Re-Ed Therapeutic Activities Neuromuscular Re-Ed Therapeutic Exercise Therapeutic Activities Neuromuscular Re-Ed Therapeutic Exercise Therapeutic Activities Therapeutic Exercise PT Re-evaluation Therapeutic Activities Neuromuscular Re-Ed Therapeutic Exercise Therapeutic Activities Neuromuscular Re-Ed Therapeutic Exercise Therapeutic Activities Neuromuscular Re-Ed Therapeutic Exercise Therapeutic Activities Neuromuscular Re-Ed Therapeutic Exercise Therapeutic Activities Neuromuscular Re-Ed Therapeutic Exercise Therapeutic Activities Neuromuscular Re-Ed Therapeutic Exercise Therapeutic Activities Neuromuscular Re-Ed Therapeutic Exercise PT Re-evaluation Therapeutic Activities Neuromuscular Re-Ed Therapeutic Exercise Therapeutic Activities Neuromuscular Re-Ed Therapeutic Exercise Therapeutic Activities Neuromuscular Re-Ed Therapeutic Exercise Therapeutic Activities Neuromuscular Re-Ed Therapeutic Exercise Therapeutic Activities Neuromuscular Re-Ed Therapeutic Exercise Therapeutic Activities Neuromuscular Re-Ed Therapeutic Exercise Therapeutic Activities Neuromuscular Re-Ed Therapeutic Exercise Therapeutic Activities Neuromuscular Re-Ed Therapeutic Exercise Therapeutic Activities Neuromuscular Re-Ed Therapeutic Exercise Therapeutic Activities Therapeutic Exercise Neuromuscular Re-Ed Manual Therapy Therapeutic Activities Neuromuscular Re-Ed Therapeutic Exercise Therapeutic Activities Neuromuscular Re-Ed Therapeutic Exercise PT Evaluation Low Complexity Therapeutic Activities Neuromuscular Re-Ed Therapeutic Exercise Advance Directives Directive Yes / No Effective Date File Name No Information Encounters Encounter Description Practice Location Reason(s) For Visit Diagnoses Date Provider Providers Copied on [facility]counter [facility], [id number], tel:[phone] [facility] No Information Siena Esquivel. . [facility] [facility] [address], [place], [place], [id number], [place] tel:[phone] [facility] No Information Siena Esquivel. . Referring Provider: Ishaan Ross, [address] [facility], [place], [address]. tel:[phone] [facility], [address] [place] [address] [address], [place], [place], [id number], [place] tel:[phone] [facility] No Information Siena Davisine. . Referring Provider: Ishaan Ross, [address] [facility], [facility] [place], [address]. tel:[phone] [facility], [address] [place] [address], [place], [place], [id number], [place] tel:[phone] [facility] No Information Siena Esquivel. . Referring Provider: Ishaan Ross, [address] [facility], [facility] [place], [address]. tel:[phone] [facility], [address] [place] [address] [address], [place], [place], [id number], [place] tel:[phone] [facility] No Information Siena Esquivel. . Referring Provider: Ishaan Ross, [address] [facility], [place], [address]. tel:[phone] [facility], [address] [facility] [address], [place], [place], [id number], [place] tel:[phone] [facility] No Information Siena Esquivel. . Referring Provider: Ishaan Ross, [address] [facility], [place], [address]. tel:[phone] [facility], [address] [facility] [address], [place], [place], [id number], [place] tel:[phone] [facility] No Information Siena Esquivel. . Referring Provider: Ishaan Ross, [address] [facility], [place], [address]. tel:[phone] [facility], [address] [place] [address], [place], [place], [id number], [place] tel:[phone] [facility] No Information Siena Esquivel. . Referring Provider: Ishaan Ross, [address] [facility], [place], [address]. tel:[phone] [facility], [address] [place] [address], [place], [place], [id number], [place] tel:[phone] [facility] No Information Siena Esquivel. . Referring Provider: Ishaan Ross, [address] [facility], [place], [address]. tel:[phone] [address], [place], [place], [id number], [place] tel:[phone] [facility] No Information Siena Esquivel. . Referring Provider: Ishaan Ross, [address] [facility], [place], [address]. tel:[phone] [address], [place], [place], [id number], [place] tel:[phone] [facility] No Information Siena Esquivel. . Referring Provider: Ishaan Ross, [address] [facility], [place], [address]. tel:[phone] [address], [place], [place], [id number], [place] tel:[phone] [facility] No Information Siena Esquivel. . Referring Provider: Ishaan Ross, [address] [facility], [place], [address]. tel:[phone] [address] [facility] [address], [place], [place], [id number], [place] tel:[phone] [facility] No Information Siena Esquivel. . Referring Provider: Isahan Ross, [address] [facility], [place], [address]. tel:[phone] [facility], [address] [facility] [address], [place], [place], [id number], [place] tel:[phone] [facility] No Information Siena Esquivel. . Referring Provider: Ishaan Ross, [address] [facility], [place], [address]. tel:[phone] [facility], [address] [place], [place] [address] [address], [place], [place], [id number], [place] tel:[phone] [facility] No Information Siena Esquivel. . Referring Provider: Ishaan Ross, [address] [facility], [place], [address]. tel:[phone] [facility], [address] [facility] [address], [place], [place], [id number], [place] tel:[phone] [facility] No Information Siena Esquivel. . Referring Provider: Ishaan Ross, [address] [facility], [facility] [place], [address]. tel:[phone] [facility], [address] [facility] [address], [place], [place], [id number], [place] tel:[phone] [facility] No Information Siena Esquivel. . Referring Provider: Ishaan Ross, [address] [facility], [place], [address]. tel:[phone] [facility], [address] [facility] [address], [place], [place], [id number], [place] tel:[phone] [facility] No Information Siena Davisine. . Referring Provider: Ishaan Ross, [address] [facility], [place], [address]. tel:[phone] [facility], [address] [place] [address], [place], [place], [id number], tel:[phone] [facility] No Information Siena Davisine. . Referring Provider: Ishaan Ross, [address] [facility], [place], [address]. tel:[phone] [facility], [address] [place] [address], [place], [place], [id number], [place] tel:[phone] [facility] No Information Siena Esquivel. . Referring Provider: Ishaan Ross, [address] [place] [address], [place], [address]. tel:[phone] [facility], [address] [place] [address], [place], [place], [id number], [place] tel:[phone] [facility] No Information Siena Esquivel. . Referring Provider: Ishaan Ross, [address] [facility], [place], [address]. tel:[phone] [facility], [address] [place] [address], [id number], [place] tel:[phone] [facility] No Information Siena Davisine. . Referring Provider: Ishaan Ross, [address] [facility], [place], [address]. tel:[phone] [address], [place], [place], [id number], [place] tel:[phone] [facility] No Information Siena Esquivel. . Referring Provider: Ishaan Ross, [address] [facility], [place], [address]. tel:[phone] [facility], [address], [id number], tel:[phone] [facility] No Information Siena Esquivel. . Referring Provider: Ishaan Ross, [address] [place], [address]. tel:[phone] [facility] [address] [place] [address], [id number], tel:[phone] [facility] No Information Ronnell Duarte. [address] [facility], [address], [place], [address], [place]. tel:[phone] Referring Provider: Ishaan Ross, [address] [place], [address]. tel:[phone] [facility] [address] [place] [address], [id number], tel:[phone] [facility] No Information Siena Esquivel. . Referring Provider: Ishaan Ross, [address] [place], [address]. tel:[phone] Family History Family Member Type Diagnosis Age At Onset No Information Payers Payer name Insurance type Covered libertarian ID Authornacho gama(s) [facility] Jenniffer [id number] Social History Type Description Quantity Date Captured [...]
== END 2024-09-12 15:47 | disposition home or self-care (01) ==
PROVIDERS: PCP Nurse Practitioner Adult Health; Visit Provider Nurse Practitioner Family
DX: L05.91 Pilonidal cyst without abscess (principal); M47.896 Other spondylosis, lumbar region
CPT/HCPCS: 72132; Q9967

== ENCOUNTER 2024-11-01 09:02 | Outpatient (CLI) | payer BC, SELFPAY ==
[2024-11-01 09:32] LABS: Basophils Absolute Auto 0.1 K/mm3 (0.0-0.1); Eosinophils Absolute Auto 0.3 K/mm3 (0-0.3); Eosinophils Percent Auto 4.9 % (0-4.4); Hematocrit 45.9 % (42.0-52.0); Hemoglobin 15.3 g/dL (14.0-18.0); Immature Granulocyte Absolute 0.01 K/mm3 (0.00-0.031); Immature Granulocyte Percent A 0.2 % (0-0.5); Lymphocytes Absolute Auto 2.24 K/mm3 (0.9-3.2); Lymphocytes Percent Auto 35.7 % (18.3-44.2); Mean Corpuscular HGB Conc 33.3 g/dl (32-36); Mean Corpuscular Hemoglobin 29.9 pg (26-34); Mean Corpuscular Volume 89.8 fl (80-100); Mean Platelet Volume 9.8 fl (7.4-10.4); Monocytes Absolute Auto 0.5 K/mm3 (0.1-0.6); Monocytes Percent Auto 8.1 % (2.6-8.5); Neutrophils Absolute Auto 3.2 K/mm3 (1.3-6.7); Neutrophils Percent Auto 50.1 % (45.5-73.1); Platelet Count Result 230 k/mm3 (150-375); Red Blood Count 5.11 M/mm3 (4.6-6.20); Red Cell Distribution Width 12.1 % (11.5-14.5); White Blood Count 6.3 K/mm3 (4.5-10.0)
== END 2024-11-01 09:03 | disposition home or self-care (01) ==
LOC: ANHLAB 09:03
PROVIDERS: PCP Nurse Practitioner Adult Health; Visit Provider Surgery
DX: L05.91 Pilonidal cyst without abscess (principal)
CPT/HCPCS: 36415; 85025

== ENCOUNTER 2024-11-05 01:39 | Day surgery (SDC) | payer BC, SELFPAY ==
[2024-10-29 10:55] VITALS: BMI 28.5
--- NOTE | 2024-10-29 11:03 | PC.NURSE ---
Report to the Outpatient Waiting Room, entrance under the green pavilion located off [facility], at time _0630_ on date _07-51-1812_. Planned Procedure Time: _0830_.? Time changes happen often and if your time is changed the preop area will call you the afternoon before. - You and your visitor will be asked to self-screen and do not enter if you have any COVID symptoms. Please call surgeon if you need to reschedule. - A mask is optional within the hospital at this time. Patients may have clear liquids (water, carbonated beverages, clear teas, apple juice) until 3 hours prior to surgery with a maximum of 20 ounces. - No food from midnight until time of surgery and no smoking. This includes no chewing gum, candy or mints. Take only the following medications with a SIP of water on the morning of surgery: ___None DO NOT STOP ANY OF YOUR OTHER PRESCRIPTION MEDICATIONS PRIOR TO SURGERY EXCEPT THE FOLLOWING Medications to discontinue per physician ___None Please no make-up, nail chinese, hairspray, perfume, deodorant, or body powder the day of surgery.? No jewelry (including any body piercings) or valuables the day of surgery, leave them at home.? Please take a shower or bath the night before, or the morning of, surgery with an antibacterial soap.? Wear comfortable, loose fitting clothing.? - Jewelry must be removed prior to entering the operating room.? Rings and piercings that are not removed may be cut off. - The hospital will not accept responsibility for valuables.? - Please leave all valuables, including medications, at home the day of surgery. If you are going home after surgery, a licensed limo driver must drive you home.? - NO public transportation without another adult if you receive anesthesia. - We recommend that an adult stay with you for 24 hours following discharge. - We also recommend that you do not drive, make important decision, drink alcoholic beverages, or take any drugs that were not prescribed by your health care provider for at least 24 hours after your discharge time. Hold all vitamins and supplements for 3 days per anesthesiologist. Follow any additional instructions given to you from your surgeon. Telephone instructions given to _Bryan_and asked if any additional questions and then verbalized understanding. Patient advised to call surgeon office or pre surgery nurse liaison [phone] if any additional questions
--- NOTE | 2024-11-04 12:16 | P.SS_ITS ---
Same Day Admit/Disch: [facility] History of Present Illness Chief complaint: pilonidal cyst Narrative: Bryan Nicole is a 29 year old male who was seen in the office with complaints of a tender midline lesion near the coccyx. He had noticed that this swelled and subsequently drained last November. It went on to heal but had the same pattern last July. He had a CT scan of the lumbar spine which showed a 9 mm subcutaneous, thick walled, cyst in the area of S4. likely to be a pilonidal cyst. An ultrasound of this area also showed a complex mass with a wide differential. Patient was seen in the office. The area continues to be tender but there is no active drainage or swelling. He has 3 deep clefts in the area and some smaller pits as well. He is taken to surgery now for incision and drainage of complex pilonidal cyst. [facility] Past Medical History Medical History Cyst near coccyx Pain, coccyx Surgical History Surgical History History of right knee surgery November 2023 Social History Social History Smoking status: Never smoker Alcohol intake: current Do You Feel Safe in your Home?: Yes Lack of Transportation: No Lack of Food: Never True Current Housing: I Have Housing Concerned About Future Housing: No Difficulty Paying Gas/Electric Bills: No Difficulty Paying for Meds: No Currently Unemployed: No Difficulty w/ Childcare or Family Care: No Living arrangements: with family Spiritual care concerns: No Same Day Admit/Disch: Med Pre-admit Medications Home Medications ?Medication ?Instructions ?Recorded ?Confirmed ?Type ketorolac 10 mg tablet 10 mg PO Q6H 4 days #16 tabs 11/05/24 Rx oxycodone-acetaminophen 5 mg-325 0.5 - 1 tablet PO Q4H PRN pain #20 11/05/24 Rx mg tablet (Percocet) tabs Review of Systems Review of Systems All systems reviewed & are unremarkable except as noted in HPI and below ( HPI) Exam Const: General: comfortable, no acute distress, alert and awake HENMT: Head: normocephalic and atraumatic Mouth: Yes Normal oral and palatal mucosa present Eyes: Conjunctivae: conjunctivae normal Pupils: Equal, round and reactive pupils present EOM: EOMs intact bilaterally Neck: Neck: normal visual inspection, no lymphadenopathy and nontender Resp: Effort & Inspection: normal respiratory effort Auscultation: clear to auscultation bilaterally Cardio: Rate: regular rate Rhythm: regular rhythm Heart sounds: no gallops, no murmurs and no rubs GI: Inspection: non-distended GI Palp: Yes Soft to palpation, No Tenderness to palpation present (GI), No Hepatomegaly present and No Splenomegaly present Rectal Exam: pilonidal cyst ( 3 deep clefts, smaller pits above the clefts, tender) Skin: Lesions: no lesions Rashes: no rashes Neuro: General: no focal motor deficits and CN's II-XI intact bilaterally Cranial nerves: Yes Equal, round and reactive pupils present, Yes Bilaterally intact EOM present, Yes facial symmetry and Yes Midline tongue present Speech: normal speech Motor exam (neuro): 5/5 motor strength present throughout and Motor abnormalities not present Extrem: General: no clubbing, cyanosis or edema and edema Psych: Affect: normal affect Thought process: Normal thought process present Insight: Good insight present (Psych) DS: Summary Time Spent with Patient Time attestation: Total time spent providing and/or coordinating discharge services: DS: Admitting Diagnosis Discharge Date 11/05/2024 Admitting Diagnosis * complex pilonidal cyst- plan to incise and drain, remove any hair or potentially infectious material. I explained to the patient that he would have an open wound following the surgery. We discussed the procedure, recovery, alternatives, usual length of recovery, and possibility of recurrence. All questions were answered. He understands and agrees to go ahead. DS: Discharge Diagnosis Discharge Diagnosis (1) Pilonidal cyst: Code(s): L05.91 - Pilonidal cyst without abscess Status: Chronic Assessment and Plan: Patient underwent incision and drainage of complicated pilonidal cyst 11/05/[address] Elliott Discharge Plan Discharge Patient Disposition: Home, Self-Care Discharge Instructions: * Try to leave dressing dry and intact until seen in Dr. Holman office tomorrow * No driving. * No showering or bathing * No lifting over 15 lb. * Okay to ambulate as needed. * Resume usual or regular diet * Prescriptions for analgesics have been sent to your pharmacy and can be picked up on the way home. * Call for severe pain, persistent bleeding, soaking of the dressing, temp over 101, or other significant change in condition. Patient Language: Japanese Stand Alone Forms: General Discharge Instructions Follow-up/Referrals: Sunday Elliott MD [Physician] - 11/06/24 10:15 am (Come a little early to office visit) Discharge Medications: New oxycodone-acetaminophen [Percocet] 5-325 mg tablet 0.5 - 1 tablet PO Q4H PRN (Reason: pain) Qty: 20 0RF ketorolac 10 mg tablet 10 mg PO Q6H 4 Days Qty: 16 0RF
[2024-11-05] VITALS (9 sets, daily range): BP systolic 100–112; BP diastolic 52–81; PULSE 51–74; RESP 14–18; TEMP 36.1–36.5; O2SAT 99–100; BMI 29.2
--- OUTSIDE RECORDS SUMMARY | 2024-11-05 01:44 | XMS_ITS | Clinical Summary ---
Author Organization [facility] Address [address] [place] [address] Phone Care Team Providers Care Awning Craftsperson Name Role Phone Hema Lauren MD Primary Care Provider [phone] Brooklyn Cowart MD Unavailable [phone] Allergies No known active allergies Medications [...] 85.7 kg (189 lb) 11/06/2017 8:19 AM BOX FEEDER Height 182.9 cm (6') 11/06/2017 8:19 AM BOX FEEDER Body Mass Index 25.63 11/06/2017 8:19 AM BOX FEEDER Plan of Treatment Health Maintenance Due Date Last Done Comments Hepatitis C Virus (HCV) Screening 1995 DTaP/Tdap/Td Immunization (9 - Td or Tdap) 04/20/2020 04/20/2010, 04/20/2010, 04/28/2009, Additional history exists Influenza Immunization (#1) 2024 SARS-COV-2 Immunization ( season) 2024 04/07/2021, 03/14/2021 Respiratory Syncytial Virus (RSV) Immunization (Adult) (1 - 1-dose 75+ series) 2070 Hepatitis B Immunization Completed 996, 1995, 1995, [...] this topic Medical Devices Implanted Type Area Agricultural Produce Sorter Device Identifier Shelf Expiration Date Model / Serial / Lot Symbotex Composite Mesh Implanted:Qty: 1 on 06/29/2017 by Brooklyn Cowart MD at [facility] N/A: Umbilical COVIDIEN 12/29/2021 SYM9 / [id number] / [id number] Insurance [facility] Care Teams Awning Craftsperson Relationship Specialty Start Date End Date Hema Lauren MD [address] [place] [address] PCP - General Family Medicine 06/14/17 Brooklyn Cowart MD [address] [place] [address] DR HARDEN [address] [place] [id number] Consulting Physician General Surgery 06/19/17
--- OUTSIDE RECORDS SUMMARY | 2024-11-05 01:44 | XMS_ITS | Referral Summary ---
Author Organization [facility] Address [id number] [place] [id number] Care Team Providers Care Precision Instrument Maker And Repairer Name Role Phone Hema Lauren MD Primary Care Provider [phone] Allergies Active Allergy Reactions Criticality Noted Date [...] Comments Blood Pressure 111/66 11/02/2023 5:45 PM SOLAR ENERGY SYSTEM INSTALLER Pulse 63 11/02/2023 5:55 PM SOLAR ENERGY SYSTEM INSTALLER Temperature 36.5 ??C (97.7 ??F) 11/02/2023 5:55 PM CS T Respiratory Rate 15 11/02/2023 5:55 PM SOLAR ENERGY SYSTEM INSTALLER Oxygen Saturation 98% 11/02/2023 5:55 PM SOLAR ENERGY SYSTEM INSTALLER Inhaled Oxygen Concentration - - Weight 90 kg (198 lb 6.4 oz) 11/02/2023 1:40 PM SOLAR ENERGY SYSTEM INSTALLER Height 182.9 cm (6') 11/02/2023 1:40 PM SOLAR ENERGY SYSTEM INSTALLER Body Mass Index 26.91 11/02/2023 1:40 PM SOLAR ENERGY SYSTEM INSTALLER Plan of Treatment Not on file Medical Devices Implanted Type Area Water Control Supervisor Device Identifier Shelf Expiration Date Model / Serial / Lot [employer] [place] Meniscal Repair Curved 2 0 Fiberwire Fiberstitch Ar-4570 - [id number] Implanted:Qty: 1 on 11/02/2023 by Ishaan Lee IV, MD at [facility] Right: Knee [employer] 06/30/2027 AR-4570 / / [id number] [employer] [place] Meniscal Repair Curved 2 0 Fiberwire Fiberstitch Ar-4570 - [id number] Implanted:Qty: 1 on 11/02/2023 by Ishaan Lee IV, MD at [facility] Right: Knee [employer] 06/30/2027 AR-4570 / / [id number] [employer] [place] Meniscal Repair Curved 2 0 Fiberwire Fiberstitch Ar-4570 - [id number] Implanted:Qty: 1 on 11/02/2023 by Ishaan Lee IV, MD at [facility] [place] Right: Knee [employer] 05/31/2027 AR-4570 / / [id number] [employer] [place] Meniscal Repair Curved 2 0 Fiberwire [facility] Ar-4570 - [id number] Implanted:Qty: 1 on 11/02/2023 by Ishaan Lee IV, MD at [facility] [place] Right: Knee [employer] 08/30/2027 AR-4570 / / [id number] Insurance [employer] ACCESS CHOICE [employer] ACCESS CHOICE Advance Directives For more information, please contact: [phone] * Full Code (Latest Code Status on File) Date Activated Date Inactivated Comments 11/02/2023 4:39 PM 11/02/2023 10:20 PM Care Teams Precision Instrument Maker And Repairer Relationship Specialty Start Date End Date Hema Lauren MD PCP - General Family Medicine 07/26/22
--- OUTSIDE RECORDS SUMMARY | 2024-11-05 01:44 | XMS_ITS | Clinical Summary ---
Author Organization [facility] Address [id number] [place] [id number] Care Team Providers Care Clinical Outcomes Manager Name Role Phone Hema Lauren MD Primary Care Provider + [phone] Allergies Active Allergy Reactions Criticality Noted Date [...] Comments Blood Pressure 111/66 11/02/2023 5:45 PM SHRIMP TRAWLER CAPTAIN Pulse 63 11/02/2023 5:55 PM SHRIMP TRAWLER CAPTAIN Temperature 36.5 ??C (97.7 ??F) 11/02/2023 5:55 PM CS T Respiratory Rate 15 11/02/2023 5:55 PM SHRIMP TRAWLER CAPTAIN Oxygen Saturation 98% 11/02/2023 5:55 PM SHRIMP TRAWLER CAPTAIN Inhaled Oxygen Concentration - - Weight 90 kg (198 lb 6.4 oz) 11/02/2023 1:40 PM SHRIMP TRAWLER CAPTAIN Height 182.9 cm (6') 11/02/2023 1:40 PM SHRIMP TRAWLER CAPTAIN Body Mass Index 26.91 11/02/2023 1:40 PM SHRIMP TRAWLER CAPTAIN Plan of Treatment Health Maintenance Due Date [...] this topic Medical Devices Implanted Type Area Trade Union Official Device Identifier Shelf Expiration Date Model / Serial / Lot [employer] [place] Meniscal Repair Curved 2 0 Fiberwire Fiberstitch Ar-4570 - [id number] Implanted:Qty: 1 on 11/02/2023 by Ishaan Lee IV, MD at [facility] [place] Right: Knee [employer] 06/30/2027 AR-4570 / / [id number] [employer] [place] Meniscal Repair Curved 2 0 Fiberwire Fiberstitch Ar-4570 - [id number] Implanted:Qty: 1 on 11/02/2023 by Ishaan Lee IV, MD at [facility] [place] Right: Knee [employer] 06/30/2027 AR-4570 / / [id number] [employer] [place] Meniscal Repair Curved 2 0 Fiberwire Fiberstitch Ar-4570 - [id number] Implanted:Qty: 1 on 11/02/2023 by Ishaan Lee IV, MD at [facility] Right: Knee [employer] 05/31/2027 AR-4570 / / [id number] [employer] [place] Meniscal Repair Curved 2 0 Fiberwire Fiberstitch Ar-4570 - [id number] Implanted:Qty: 1 on 11/02/2023 by Ishaan Lee IV, MD at [facility] [place] Right: Knee [employer] 08/30/2027 AR-4570 / / [id number] Insurance [facility] CHOICE [facility] ACCESS CHOICE Advance Directives For more information, please contact: [phone] * Full Code (Latest Code Status on File) Date Activated Date Inactivated Comments 11/02/2023 4:39 PM 11/02/2023 10:20 PM Care Teams Clinical Outcomes Manager Relationship Specialty Start Date End Date Hema Lauren MD PCP - General Family Medicine 07/26/22
[2024-11-05] MEDS: LACTATED RINGERS 1,000 ML 30 ML IV CONT ×2 (06:47→09:45)
--- NOTE | 2024-11-05 06:57 | WPDHPUPDATE1 ---
History and Physical Update Update Date/Time: 11/05/24 06:57 History and Physical has been reviewed, including an updated exam of the patient. There are NO changes in the patient's condition. Risks, benefits, and alternatives have been discussed and questions answered. Patient agrees to proceed with procedure.
--- NOTE | 2024-11-05 08:24 | WPDANESEPPF ---
Anes - Initial Pre Proc Eval Procedure: Operation Date: 11/05/24 08:30 Proposed Procedures p Incision and Drainage Complex Pilonidal Cyst - Sunday Elliott MD Date/Time: 11/05/24 08:24 Surgeon: Sunday Elliott MD Pre Op Diagnosis: pilonidal cyst Patient Data Age: 29 Gender: M Height: 1.83 m Weight: 97.8 kg Last Vital Signs Temp 36.5 C 11/05/24 06:20 Pulse 64 11/05/24 06:20 Resp 16 11/05/24 06:20 BP 111/72 11/05/24 06:20 Pulse Ox 99 11/05/24 06:20 O2 Del Method Room Air 11/05/24 06:20 Allergies Allergy/AdvReac Type Severity Reaction Status Date / Time No Known Allergies Allergy Verified 11/05/24 07:19 Patient hx anesthesia problems: none Family hx anesthesia problems: none Results Review: All pre-operative results and documents have been reviewed as part of the pre-operative evaluation. [facility] Past Medical History Medical History Cyst near coccyx Pain, coccyx Surgical History Surgical History History of right knee surgery November 2023 Social History Social History Smoking status: Never smoker Alcohol intake: current Do You Feel Safe in your Home?: Yes Lack of Transportation: No Lack of Food: Never True Current Housing: I Have Housing Concerned About Future Housing: No Difficulty Paying Gas/Electric Bills: No Difficulty Paying for Meds: No Currently Unemployed: No Difficulty w/ Childcare or Family Care: No Living arrangements: with family Spiritual care concerns: No Anes - Eval Final PreProcedure Day of Procedure 11/05/24 08:24 Patient weight: overweight Heart: regular rate and rhythm Lungs: clear to auscultation Airway: Mallampati scale class II Neurological: alert and oriented Last oral intake: >/= 8 hours ASA classification: II Emergent: no Anesthetic plan: proceed Anesthesia type and monitoring: general ETT and standard monitoring Results Review: All pre-operative results and documents have been reviewed as part of the pre-operative evaluation. Informed Consent: The patient's anesthetic plan and its attendant risks and benefits were discussed with the patient/family/POA. Questions were solicited and answers provided to the satisfaction of the patient/family/POA.
[2024-11-05] MEDS: ceFAZolin 2 GM/D5W 50 ML 2 GM/50 ML BAG IVPB (08:59)
[2024-11-05] MEDS: BUPIVACAINE/EPINEPHRINE 0.5% 50 ML VIAL 20 ML INFILTRATE (09:24)
--- NOTE | 2024-11-05 09:52 | W.PM.PROC2 ---
Procedure Note - Detailed Date of Procedure 11/05/24 Pre-op Diagnosis pilonidal cyst Post-op Diagnosis Same (Extensive pilonidal cyst) Procedure Performed Incision and drainage of complicated pilonidal cyst Surgeon Sunday Elliott MD Senior Chemist Neck Anesthesia General and Local (0.5% Marcaine with epinephrine) Indications Patient is a 29-year-old man who has had at least 2 episodes of swelling drainage and subsequent healing associated with the upper gluteal crease and sacral area. He was seen in the office and noted to have multiple deep clefts and some pits. CT scan and ultrasound suggested a large pilonidal cyst. He is taken to surgery now for incision and drainage. Findings This was a long, 12 cm, pilonidal cyst. There was extensive matted hair and a well-formed tract. Description of Procedure Patient was taken to surgery and induced into general anesthesia. He was then placed in prone position. The area around the upper gluteal crease and both buttocks were shaved with clippers. The buttocks were taped apart Prep and drape was carried out. I used lacrimal duct probes and probed the 3 deep clefts. There was clearly a long tract heading from the clefts cephalad. With 1 of the probes in the most caudal cleft and proceeding cephalad in the wound track, I infiltrated local anesthetic into the skin and subcutaneous. I then opened the skin over the probe down to the area of the pilonidal cyst. The cyst itself was well formed with a thickened tract. There was extensive matted hair throughout. I removed moved the matted hair with a curved clamp. I was then able to probe further cephalad and there was more tract to unroof. With the probe in this aspect I again infiltrated local and then opened the skin and subcutaneous over the more cephalad aspect of the pilonidal cyst. This continued until I reached the most cephalad extent of the pilonidal cyst. The overall length of the cyst was at least 10 if not 12 cm. I removed all of the matted hair from the cyst. Any tunneling in the cyst based was unroof it. I used a curette and removed all granulation tissue from the pilonidal cyst. We irrigated the wound. Cautery was used for hemostasis. All looked good. I packed the wound with 2 in iodoform Nu Gauze. This was then dressed with bulky fluffs and ABDs. Medipore tape was used. Patient was returned to a supine position. He was awakened and extubated. He was then transferred to recovery in good condition. Sponge needle counts were correct x2. Estimated Blood Loss -5 Drains No Packing Yes (2 in iodoform Nu Gauze) Pathology None sent Complications None Condition Stable Disposition PACU [facility] Billing Surgery - Charge Forward: Surgery Billing (Incision and drainage complicated pilonidal cyst)
== END 2024-11-05 11:28 | disposition home or self-care (01) ==
PROVIDERS: PCP Nurse Practitioner Adult Health; Visit Provider Surgery
PROC: (CPT 10081; principal; 2024-11-05 08:30)
DX: L05.91 Pilonidal cyst without abscess (principal)
CPT/HCPCS: 10081; A9270; J0690; J1100; J2003; J2250; J2405; J2704; J3010; J7120; Q9968